=== PATIENT | female | born 1940 | race Caucasian/White ===

== ENCOUNTER 2020-04-02 17:43 | Inpatient (IN) | payer MEDICARE, OTHER ==
[~2020-04-02] VITALS: Ht 152.4 cm; Wt 57.3 kg
--- NOTE | 2020-04-02 17:50 | NUR ---
Dr. Espinoza at bedside for MSE
[2020-04-02] MEDS ORDERED: IV NORMAL SALINE 1000 ML BAG IV ONE (18:00)
[2020-04-02] MEDS ORDERED: MAG HYDROX/AL HYDROX/SIMETH 30 ML LIQUID UDC PO ONE (18:00)
[2020-04-02] MEDS ORDERED: PANTOPRAZOLE SODIUM 40 MG VIAL IV ONE (18:00)
[2020-04-02] MEDS ORDERED: FAMO20TA8 PO (18:05)
[2020-04-02] MEDS ORDERED: PANT40TA4 PO (18:05)
[2020-04-02 18:22] LABS: BASOPHILS % (AUTO) 0.5 % (0.0-2.0); EOSINOPHILS # (AUTO) 0.8 K/uL (0.0-0.7); EOSINOPHILS % (AUTO) 10.8 % (0.0-7.0); HEMATOCRIT 41.2 % (31.2-41.9); HEMOGLOBIN 13.9 g/dL (10.9-14.3); LYMPHOCYTES # (AUTO) 2.1 K/uL (20.0-40.0); LYMPHOCYTES % (AUTO) 28.8 % (20.5-51.5); MEAN CORPUSCULAR HEMOGLOBIN 30.2 uug (24.7-32.8); MEAN CORPUSCULAR HGB CONC 34 g/dL (32.3-35.6); MEAN CORPUSCULAR VOLUME 89.2 fL (75.5-95.3); MONOCYTES # (AUTO) 0.5 K/uL (2.0-10.0); MONOCYTES % (AUTO) 7.7 % (0.0-11.0); NEUTROPHILS # (AUTO) 3.7 K/uL (1.8-8.9); NEUTROPHILS % (AUTO) 52.2 % (38.5-71.5); PLATELET COUNT (AUTO) 175 K/uL (179-408); RED BLOOD CELL COUNT(AUTO) 4.62 MIL/uL (3.63-4.92); WHITE BLOOD COUNT (AUTO) 7.2 K/uL (3.8-11.8)
[2020-04-02] MEDS ORDERED: MAG HYDROX/AL HYDROX/SIMETH 30 ML LIQUID UDC ONE (18:24)
[2020-04-02] MEDS ORDERED: PANTOPRAZOLE SODIUM 40 MG VIAL ONE (18:24)
[2020-04-02 18:32] LABS: CREATININE 0.6 mg/dL (0.6-1.3)
[2020-04-02 18:39] LABS: BILIRUBIN,DIRECT 0.3 mg/dL (0.0-0.2); BILIRUBIN,TOTAL 0.8 mg/dL (0.2-1.0); TOTAL PROTEIN, SERUM 6.1 g/dL (6.4-8.2)
[2020-04-02] MEDS ORDERED: MORPHINE SULFATE 2 MG/1 ML DISP.SYRIN ONE (18:48)
[2020-04-02] MEDS ORDERED: ONDANSETRON 4 MG/2 ML VIAL ONE (18:48)
[2020-04-02] MEDS ORDERED: MORPHINE SULFATE 4 MG/1 ML DISP.SYRIN IV ONE (19:00)
[2020-04-02] MEDS ORDERED: MORPHINE SULFATE 2 MG/1 ML DISP.SYRIN IV ONE (19:00)
[2020-04-02] MEDS ORDERED: ONDANSETRON 4 MG/2 ML VIAL IV ONE (19:00)
[2020-04-02] MEDS ORDERED: MORPHINE SULFATE 4 MG/1 ML DISP.SYRIN ONE (19:04)
[2020-04-02] MEDS ORDERED: FLUT1BLS IH (20:11)
[2020-04-02] MEDS ORDERED: CARB-95 PO (20:11)
[2020-04-02] MEDS ORDERED: ALBU8.5H8 IH (20:11)
[2020-04-02] MEDS ORDERED: MEMA10TA PO (20:11)
[2020-04-02] MEDS ORDERED: NITR1PAT67 TD (20:11)
[2020-04-02] MEDS ORDERED: ONDA4TAB5 PO (20:11)
--- NOTE | 2020-04-02 21:02 | NUR ---
COVID SWAB COLLECTED, DROPPED OF AT LAB.
[2020-04-02] MEDS ORDERED: ONDANSETRON 4 MG/2 ML VIAL IV PRN (21:30)
[2020-04-02] MEDS ORDERED: ACETAMINOPHEN 325 MG TABLET PO PRN (21:30)
[2020-04-02] MEDS ORDERED: MAGNESIUM HYDROXIDE 30 ML LIQUID UDC PO PRN (21:30)
[2020-04-02] MEDS ORDERED: ONDANSETRON HCL 4 MG TABLET PO PRN (21:30)
[2020-04-02] MEDS ORDERED: Z GUARD REMEDY PASTE 57 GM TUBE TOP PRN (21:30)
[2020-04-02] MEDS ORDERED: HYDROCODONE/APAP 5-325MG TABLET PO PRN (21:30)
[2020-04-02] MEDS ORDERED: MORPHINE SULFATE 2 MG/1 ML DISP.SYRIN IV PRN (21:30)
[2020-04-02] MEDS: IV NS 1000 ML 1,000 ML IV SCH (21:48)
--- NOTE | 2020-04-02 22:11 | NUR ---
Dr. Radford at bedside talking to patient.
--- NOTE | 2020-04-03 02:11 | NUR ---
Pt. admitted to m/s , under care of Dr. Radford Belongs List completed.
--- NOTE | 2020-04-03 02:49 | NUR ---
Received pt via wheelchair, transported by ER nurse Badillo. Pt denies any acute distress or pain at this time, but complains of being nauseous. Will further assess. Pt came here d/t Epigastric pain and nausea since yesterday. V/S stable on room air. Pt is NPO. All personal belongings checked and home medications will send to pharmacy for med reconciliation. Safety measures in place,call light within reach. Will continue with the plan of care.
[2020-04-03] MEDS ORDERED: ALBUTEROL SULFATE 2.5 MG/3 ML NEBU NEB PRN (03:00)
[2020-04-03] MEDS: IV NS 1000 ML 1,000 ML IV SCH (04:01)
--- NOTE | 2020-04-03 04:30 | NUR ---
Pt's IV is infiltrated. Initiated to restart a new one but pt refused, she stated that she will talk to her daughter who is a nurse, because she doesn't want to get poked again, unless a portainer operator will do it. Educated the pt that only a registered nurse can insert an IV. Pt still refused. Charge nurse aware.
[2020-04-03 05:25] VITALS: BP 134/79
--- NOTE | 2020-04-03 06:23 | NUR ---
Pt slept intermittently through the night. Pt denies any acute distress or pain. Pt had no episode of vomiting or abdominal pain during my shift. V/S stable on room air. Comfort care and needs attended. Pt on NPO. No IV access d/t infiltration. Still refused to reinsert a new one. Fall precaution maintained. Safety measures in place. Call light within reach. Will endorse to the oncoming nurse accordingly.
--- NOTE | 2020-04-03 08:00 | NUR ---
Received pt in bed asleep but arousable to name AOx3, on RA with no distress or SOB noted at this time. Denied chest pain, any abdominal pain and nausea. Ambulated to bathroom. Bed locked in lowest position with siderails 2x up call light and phone within reach
[2020-04-03] MEDS: PANTOPRAZOLE SODIUM 40 MG TABLET.DR PO SCH (09:05)
[2020-04-03] MEDS: MEMANTINE HCL 5 MG TABLET PO SCH (09:05)
[2020-04-03] MEDS: FAMOTIDINE 20 MG TABLET PO SCH (09:05)
[2020-04-03] MEDS: CARBIDOPA/LEVODOPA CR 25-100MG TABLET.SA PO SCH ×3 (09:07→16:15)
--- NOTE | 2020-04-03 10:43 | NUR ---
TOM tried to reinsert IV but per TOM patient refused at this time
[2020-04-03 10:55] LABS: BASOPHILS % (AUTO) 0.2 % (0.0-2.0); EOSINOPHILS # (AUTO) 0.7 K/uL (0.0-0.7); EOSINOPHILS % (AUTO) 10.9 % (0.0-7.0); HEMATOCRIT 42.7 % (31.2-41.9); HEMOGLOBIN 14.4 g/dL (10.9-14.3); LYMPHOCYTES # (AUTO) 1.2 K/uL (20.0-40.0); LYMPHOCYTES % (AUTO) 19.6 % (20.5-51.5); MEAN CORPUSCULAR HEMOGLOBIN 30.4 uug (24.7-32.8); MEAN CORPUSCULAR HGB CONC 34 g/dL (32.3-35.6); MEAN CORPUSCULAR VOLUME 90.1 fL (75.5-95.3); MONOCYTES # (AUTO) 0.5 K/uL (2.0-10.0); MONOCYTES % (AUTO) 7.6 % (0.0-11.0); NEUTROPHILS # (AUTO) 3.8 K/uL (1.8-8.9); NEUTROPHILS % (AUTO) 61.7 % (38.5-71.5); PLATELET COUNT (AUTO) 173 K/uL (179-408); RED BLOOD CELL COUNT(AUTO) 4.74 MIL/uL (3.63-4.92); WHITE BLOOD COUNT (AUTO) 6.1 K/uL (3.8-11.8)
[2020-04-03 11:12] LABS: CREATININE 0.6 mg/dL (0.6-1.3); MAGNESIUM 2.3 mg/dL (1.8-2.4); PHOSPHOROUS 3.3 mg/dL (2.5-4.9); POTASSIUM 4.1 mmol/L (3.5-5.1)
[2020-04-03 12:00] VITALS: BP 143/73
--- NOTE | 2020-04-03 12:30 | NUR ---
IV just reinserted and fluid started
--- NOTE | 2020-04-03 13:38 | NUR ---
Able to tolerate clear liquid diet, denied any pain and nausea, and stated she feels a lot better
[2020-04-03 15:58] VITALS: BP 125/79
[2020-04-03 20:00] VITALS: BP 135/69
[2020-04-03] MEDS: IV NS 1000 ML 1,000 ML IV PRN (20:08)
[2020-04-04 04:00] VITALS: BP 132/71
[2020-04-04] MEDS: IV NS 1000 ML 1,000 ML IV PRN (05:57)
--- NOTE | 2020-04-04 06:32 | NUR ---
PATIENT AWAKE IN BED. SLEPT WELL. DENIES PAIN OR DISCOMFORT. IVF INFUSING WELL. CALL LIGHT IN REACH. ALL NEEDS ATTENDED. WILL CONTINUE TO MONITOR.
--- NOTE | 2020-04-04 08:00 | NUR ---
Pt in bed awake AOx3 on RA with no SOB or distress noted at this time. IV on right FA infiltrated, removed, no bleeding. Very restless and wants to eat and go home, informed pt that the reason for clear liquid diet and MD will come see her. Denied any abdominal pain. Ambulates with steady gait. Reinforced the use of call light instead of coming out of room, verbalized understanding but pt very forgetful. Bed locked in lowest position with siderails 2x up. Call light and phone within reach
[2020-04-04] MEDS: PANTOPRAZOLE SODIUM 40 MG TABLET.DR PO SCH (08:19)
[2020-04-04] MEDS: CARBIDOPA/LEVODOPA CR 25-100MG TABLET.SA PO SCH ×3 (08:19→17:05)
[2020-04-04] MEDS: MEMANTINE HCL 5 MG TABLET PO SCH (08:19)
[2020-04-04] MEDS: FAMOTIDINE 20 MG TABLET PO SCH (08:19)
--- NOTE | 2020-04-04 10:55 | NUR ---
Pt getting very restless and agitated. Keeps walking to the nursing station, kept reinforcing to stay in the room. Pt angry and stated that she's very hungry and informed that the doctor will come in and see her and will decide to advance diet. Spoke with daughter on the phone and informed her about the situation and updates regarding patient. MD will call daughter. Offered katrin and will bring up soup for patient.
[2020-04-04 11:37] VITALS: BP 139/90
[2020-04-04 11:55] LABS: BASOPHILS % (AUTO) 0.2 % (0.0-2.0); EOSINOPHILS # (AUTO) 0.3 K/uL (0.0-0.7); EOSINOPHILS % (AUTO) 5.8 % (0.0-7.0); HEMATOCRIT 41.2 % (31.2-41.9); HEMOGLOBIN 14.3 g/dL (10.9-14.3); LYMPHOCYTES # (AUTO) 1.6 K/uL (20.0-40.0); LYMPHOCYTES % (AUTO) 26.7 % (20.5-51.5); MEAN CORPUSCULAR HEMOGLOBIN 30.9 uug (24.7-32.8); MEAN CORPUSCULAR HGB CONC 35 g/dL (32.3-35.6); MEAN CORPUSCULAR VOLUME 89.2 fL (75.5-95.3); MONOCYTES # (AUTO) 0.4 K/uL (2.0-10.0); NEUTROPHILS # (AUTO) 3.6 K/uL (1.8-8.9); NEUTROPHILS % (AUTO) 60.3 % (38.5-71.5); PLATELET COUNT (AUTO) 167 K/uL (179-408); RED BLOOD CELL COUNT(AUTO) 4.62 MIL/uL (3.63-4.92)
[2020-04-04 12:00] LABS: CREATININE 0.8 mg/dL (0.6-1.3); POTASSIUM 3.8 mmol/L (3.5-5.1)
--- NOTE | 2020-04-04 13:46 | NUR ---
Dr. Chong talked to daughter Destini and explained plan of care. Daughter will talk and explain to patient. Plan for midline insertion, order carried out. Also explained to patient
[2020-04-04 15:45] VITALS: BP 146/65
--- NOTE | 2020-04-04 16:00 | NUR ---
Midline inserted on ZACHERY. Tolerated procedure well
[2020-04-04] MEDS ORDERED: ONDANSETRON 4 MG/2 ML VIAL IV PRN (17:00)
[2020-04-04] MEDS: IV D5 1/2 NS 1000 ML 1,000 ML IV PRN (17:23)
[2020-04-04] MEDS: FLUTICASONE/VILANTEROL 1 EACH BLST.W.DEV IH PRN (17:23)
--- NOTE | 2020-04-04 18:42 | NUR ---
Pt has been repeatedly informed not to walk around hallway to prevent midline from getting dislodged, verbalized understanding but forgetful
[2020-04-04 19:48] VITALS: BP 140/71
--- NOTE | 2020-04-04 23:15 | NUR ---
Reinforced safety, reminded to stay in bed at all times, verbalized understanding but forgets. Pt still tries to get our of bed. frequent roundings done and bed alarm on
[2020-04-05] MEDS: FLUTICASONE/VILANTEROL 1 EACH BLST.W.DEV IH PRN (01:39)
[2020-04-05 04:40] VITALS: BP 139/81
[2020-04-05] MEDS: IV D5 1/2 NS 1000 ML 1,000 ML IV PRN (06:00)
--- NOTE | 2020-04-05 06:29 | NUR ---
Pt did not sleep throughout the night, kept getting out of bed and out of room. Reinforcement of safety and education done throughout shift but patient forgetful. Patient confused, AOx1. Earlier complained of SOB, inhaler given with relief. Denies any abdominal pain and chest pain
[2020-04-05 07:13] LABS: BASOPHILS % (AUTO) 0.1 % (0.0-2.0); EOSINOPHILS # (AUTO) 0.2 K/uL (0.0-0.7); EOSINOPHILS % (AUTO) 3.2 % (0.0-7.0); HEMATOCRIT 36.6 % (31.2-41.9); HEMOGLOBIN 12.8 g/dL (10.9-14.3); LYMPHOCYTES # (AUTO) 1.2 K/uL (20.0-40.0); LYMPHOCYTES % (AUTO) 19.1 % (20.5-51.5); MEAN CORPUSCULAR HEMOGLOBIN 31.2 uug (24.7-32.8); MEAN CORPUSCULAR HGB CONC 35 g/dL (32.3-35.6); MEAN CORPUSCULAR VOLUME 89.2 fL (75.5-95.3); MONOCYTES # (AUTO) 0.4 K/uL (2.0-10.0); NEUTROPHILS # (AUTO) 4.4 K/uL (1.8-8.9); NEUTROPHILS % (AUTO) 70.6 % (38.5-71.5); PLATELET COUNT (AUTO) 148 K/uL (179-408); WHITE BLOOD COUNT (AUTO) 6.2 K/uL (3.8-11.8)
[2020-04-05 07:19] LABS: BILIRUBIN,TOTAL 0.8 mg/dL (0.2-1.0); CREATININE 0.7 mg/dL (0.6-1.3); MAGNESIUM 1.9 mg/dL (1.8-2.4); PHOSPHOROUS 3.1 mg/dL (2.5-4.9); POTASSIUM 3.9 mmol/L (3.5-5.1); TOTAL PROTEIN, SERUM 5.7 g/dL (6.4-8.2)
[2020-04-05 07:28] LABS: THYROID STIMULATING HORMONE 1.801 mIU/mL (0.358-3.740)
[2020-04-05] MEDS: FAMOTIDINE 20 MG TABLET PO SCH (08:16)
[2020-04-05] MEDS: CARBIDOPA/LEVODOPA CR 25-100MG TABLET.SA PO SCH (08:17)
[2020-04-05] MEDS: PANTOPRAZOLE SODIUM 40 MG TABLET.DR PO SCH (08:17)
[2020-04-05] MEDS: MEMANTINE HCL 5 MG TABLET PO SCH (08:17)
--- NOTE | 2020-04-05 09:18 | NUR ---
Received patient in room, awake, AOx3. Patient seen and examined by MD Chong. Lipase-88 normal. MD aware. ordered discharge today. Patient family notifed and agree. Removed midline. no infiltration noted. will continue monitor
[2020-04-05] MEDS ORDERED: SIMV10TA98 PO (11:30)
--- NOTE | 2020-04-05 11:41 | NUR ---
Patient discharge around 1130am in stable condition. 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 Patient discharge instruction and medication prescription given verbalize understanding.
--- NOTE | 2020-04-05 13:34 | NUR ---
Received call from daughter Destini [phone] stating that the pharmacy did not receive ePrescription on discharge. Verified with her that [facility] [address] [place] [address] which she agreed. Call to [facility] [phone], pharmacist confirmed ePrescription was received for Simvastatin and was ready for pick-up. Notified daughter.
[2020-04-05] MEDS ORDERED: SIMVASTATIN 10 MG TABLET PO SCH (21:00)
[2020-04-06 20:00] VITALS: BP 139/98
== END 2020-04-05 11:30 | disposition home or self-care (01) | DRG 439 ==
LOC: ER 17:44 → MEDSURG3 23:45
PROVIDERS: ADMIT Family Medicine; ATTEND Family Medicine
PROC: 05HY33Z Insertion of Infusion Device into Upper Vein, Percutaneous Approach (ICD-10-PCS; principal; 2020-04-04)
DX: K85.90 Acute pancreatitis without necrosis or infection, unspecified (principal); E44.1 Mild protein-calorie malnutrition; Z68.24 Body mass index [BMI] 24.0-24.9, adult; G20 Parkinson's disease; F02.80 Dementia in other diseases classified elsewhere, unspecified severity, without behavioral disturbance, psychotic disturbance, mood disturbance, and anxiety; J44.9 Chronic obstructive pulmonary disease, unspecified; K21.9 Gastro-esophageal reflux disease without esophagitis; Z87.891 Personal history of nicotine dependence; Z90.49 Acquired absence of other specified parts of digestive tract; E88.09 Other disorders of plasma-protein metabolism, not elsewhere classified; K80.50 Calculus of bile duct without cholangitis or cholecystitis without obstruction; I10 Essential (primary) hypertension
CPT/HCPCS: 36415; 70030-TC; 71045; 83690; 83735; 84100; 84443; 85025; 93005; A4663; C9113; G0378; J2270; J2405; J3490; J7030

== ENCOUNTER 2021-11-02 14:01 | Inpatient (IN) | payer MEDICARE, OTHER ==
[~2021-11-02] VITALS: Ht 160 cm; Wt 59.9 kg
[~2021-11-02 14:01] MED LIST: ALBU8.5H8 IH; CARB-95 PO; FAMO20TA8 PO; FLUT1BLS IH; MEMA10TA PO; NITR1PAT67 TD; ONDA4TAB5 PO; PANT40TA49 PO; SIMV10TA98 PO
[2021-11-02] MEDS ORDERED: HYDROCODONE/APAP 5-325MG TABLET PO ONE (14:30)
[2021-11-02] MEDS ORDERED: ONDANSETRON 4 MG/2 ML VIAL IV ONE (14:45)
[2021-11-02] MEDS ORDERED: MORPHINE SULFATE 2 MG/1 ML DISP.SYRIN IV ONE (14:45)
[2021-11-02] MEDS ORDERED: IV NORMAL SALINE 1000 ML BAG IV ONE (14:45)
--- NOTE | 2021-11-02 14:51 | NUR ---
med list obtained from pt's daughter,
--- NOTE | 2021-11-02 14:55 | NUR ---
A call to exchange for Dr. Lewis as per exchange will be paged and if no call back within 20 min. to call back.
[2021-11-02] MEDS ORDERED: LIPA1CAP15 PO (14:58)
[2021-11-02] MEDS ORDERED: MORPHINE SULFATE 4 MG/1 ML DISP.SYRIN ONE (14:58)
[2021-11-02] MEDS ORDERED: MONT10TA22 PO (14:58)
[2021-11-02] MEDS ORDERED: DONE10TA44 PO (14:58)
[2021-11-02] MEDS ORDERED: QUET25TA PO (14:58)
[2021-11-02] MEDS ORDERED: OMEP40CA21 PO (14:58)
[2021-11-02] MEDS ORDERED: FLUO20CA42 PO (14:58)
[2021-11-02] MEDS ORDERED: ONDANSETRON 4 MG/2 ML VIAL ONE (14:59)
[2021-11-02 15:00] LABS: HEMATOCRIT 36.6 % (31.2-41.9); MEAN CORPUSCULAR HEMOGLOBIN 29.2 uug (24.7-32.8); MEAN CORPUSCULAR VOLUME 85.7 fL (75.5-95.3); PLATELET COUNT (AUTO) 105 K/uL (179-408)
[2021-11-02] MEDS ORDERED: ONDANSETRON 4 MG/2 ML VIAL IV PRN (15:00)
[2021-11-02] MEDS ORDERED: MORPHINE SULFATE 2 MG/1 ML DISP.SYRIN IV PRN (15:00)
[2021-11-02] MEDS ORDERED: REMEDY ESSENTIAL ZINC PASTE 113 GM TP PRN (15:00)
[2021-11-02] MEDS ORDERED: MAGNESIUM HYDROXIDE 30 ML LIQUID UDC PO PRN (15:00)
[2021-11-02 15:07] LABS: CREATININE 0.8 mg/dL (0.6-1.3); POTASSIUM 4.2 mmol/L (3.5-5.1)
[2021-11-02 15:12] LABS: BILIRUBIN,DIRECT 0.2 mg/dL (0.0-0.2); BILIRUBIN,TOTAL 0.9 mg/dL (0.2-1.0); TOTAL PROTEIN, SERUM 6.1 g/dL (6.4-8.2)
--- NOTE | 2021-11-02 16:14 | NUR ---
Report given to Elisa Perez all system report given.
--- NOTE | 2021-11-02 16:15 | NUR ---
HR 81, sbp 119/84 saturation of 97% L NC after morphine administered.
[2021-11-02 16:30] VITALS: BP 118/45
--- NOTE | 2021-11-02 19:00 | NUR ---
Received pt from ER for fractured hip at 1630. Pt stated she had a fall two days ago when throwing her trash away. Pt has walker at home. Pt is a/o x 3, has trouble remembering certain details due to history of dementia. Pt is on bedrest. To be placed on NPO at midnight. Pending Dr Lewis consult. Pt does not complain of pain at this time, complaints of nausea and vomiting post dinner tray because she did not like the food. Administered Zofran PRN as ordered. Family at bedside, comfort measures provided, call light within reach. 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
[2021-11-02] MEDS: ACETAMINOPHEN 325 MG TABLET PO PRN (19:42)
[2021-11-02 20:00] VITALS: BP 109/57
[2021-11-02] MEDS ORDERED: ENOXAPARIN SODIUM 40 MG/0.4 ML DISP.SYRIN SQ SCH (21:00)
[2021-11-02] MEDS ORDERED: ENOXAPARIN SODIUM 40 MG/0.4 ML DISP.SYRIN SQ ONE (22:30)
[2021-11-03] MEDS ORDERED: IV LACTATED RINGERS SOLUTION 1,000 ML IV PRN
[2021-11-03 04:00] VITALS: BP 107/54
[2021-11-03 06:38] LABS: HEMATOCRIT 35.8 % (31.2-41.9); MEAN CORPUSCULAR HEMOGLOBIN 28.9 uug (24.7-32.8); MEAN CORPUSCULAR VOLUME 86.9 fL (75.5-95.3); PLATELET COUNT (AUTO) 87 K/uL (179-408)
[2021-11-03 07:21] LABS: CREATININE 0.7 mg/dL (0.6-1.3); MAGNESIUM 2.1 mg/dL (1.8-2.4); PHOSPHOROUS 3.7 mg/dL (2.5-4.9); POTASSIUM 4.6 mmol/L (3.5-5.1)
[2021-11-03 07:33] LABS: NEUTROPHILS % (MANUAL) 0 % (42-75)
[2021-11-03 11:09] VITALS: BP 104/52
[2021-11-03] MEDS ORDERED: FAMOTIDINE 20 MG TABLET PO SCH (14:00)
[2021-11-03] MEDS ORDERED: ALBUTEROL SULFATE 8 GM HFA.AER.AD IH PRN (14:00)
[2021-11-03] MEDS ORDERED: MEMANTINE HCL 10 MG TABLET PO SCH (14:00)
[2021-11-03] MEDS ORDERED: ALBUTEROL SULFATE 2.5 MG/3 ML NEBU NEB PRN (14:15)
[2021-11-03] MEDS ORDERED: CARB1TAB21 PO (14:18)
[2021-11-03] MEDS ORDERED: MEMA28CA5 PO (14:20)
[2021-11-03] MEDS ORDERED: MEMANTINE 28 MG PO SCH (14:30)
[2021-11-03] MEDS ORDERED: DONEPEZIL 10 MG TABLET PO SCH (15:00)
[2021-11-03 15:16] VITALS: BP 117/69
[2021-11-03] MEDS ORDERED: ERGO500040 PO (15:28)
[2021-11-03] MEDS ORDERED: CALC-903 PO (15:28)
[2021-11-03] MEDS ORDERED: FOLI1TAB94 PO (15:28)
[2021-11-03] MEDS ORDERED: ZINC50TA69 PO (15:28)
[2021-11-03] MEDS: CARBIDOPA/LEVODOPA 25-100MG TABLET PO SCH ×2 (16:44→20:15)
[2021-11-03] MEDS: FLUOXETINE HCL 20 MG CAPSULE PO SCH (16:44)
[2021-11-03] MEDS: ISOSORBIDE MONONITRATE 30 MG TAB.SR.24H PO SCH (16:44)
[2021-11-03] MEDS: MONTELUKAST SODIUM 10 MG TABLET PO SCH (16:44)
[2021-11-03] MEDS ORDERED: CARBIDOPA/LEVODOPA CR 25-100MG TABLET.SA PO SCH (17:00)
[2021-11-03] MEDS: LIPASE/PROTEASE/AMYLASE 4200 UNITS CAPSULE.DR PO SCH (18:03)
[2021-11-03] MEDS: QUETIAPINE FUMARATE 25 MG TABLET PO SCH (20:15)
[2021-11-03] MEDS: DONEPEZIL 10 MG TABLET PO SCH (20:15)
[2021-11-03 20:53] VITALS: BP 122/70
[2021-11-03] MEDS ORDERED: SIMVASTATIN 10 MG TABLET PO SCH (21:00)
[2021-11-03] MEDS: IV LACTATED RINGERS SOLUTION 1,000 ML IV PRN (22:27)
--- NOTE | 2021-11-03 22:30 | NUR ---
Patient in bed c/o left hip pain.Medicated with morphine Ivp with good effect. IV on left Ac 20 patent and and intact with IVF infusing well. O2 at 2LPM via NC saturating well .NPO after midnight.Patient made aware and verbalized understanding. Call light with in reach.Will continue to monitor.
[2021-11-04 04:20] VITALS: BP 112/65
[2021-11-04] MEDS: PANTOPRAZOLE SODIUM 40 MG TABLET.DR PO SCH (06:21)
[2021-11-04 07:04] LABS: HEMATOCRIT 31.6 % (31.2-41.9); MEAN CORPUSCULAR HEMOGLOBIN 29.8 uug (24.7-32.8); MEAN CORPUSCULAR VOLUME 85.9 fL (75.5-95.3); PLATELET COUNT (AUTO) 94 K/uL (179-408)
[2021-11-04 07:20] LABS: CREATININE 0.6 mg/dL (0.6-1.3); MAGNESIUM 1.9 mg/dL (1.8-2.4); PHOSPHOROUS 3.6 mg/dL (2.5-4.9); POTASSIUM 4.2 mmol/L (3.5-5.1)
[2021-11-04] MEDS ORDERED: BUPIVACAINE 0.25% 30 ML VIAL ONE (07:30)
[2021-11-04] MEDS ORDERED: VANCOMYCIN 1000 MG VIAL ONE (07:30)
[2021-11-04] MEDS: LIPASE/PROTEASE/AMYLASE 4200 UNITS CAPSULE.DR PO SCH ×3 (08:00→18:08)
[2021-11-04] MEDS: FOLIC ACID 1 MG TABLET PO SCH (08:15)
[2021-11-04] MEDS: ISOSORBIDE MONONITRATE 30 MG TAB.SR.24H PO SCH (08:15)
[2021-11-04] MEDS: CALCIUM CARBONATE 600 MG TABLET PO SCH (08:15)
[2021-11-04] MEDS: FLUOXETINE HCL 20 MG CAPSULE PO SCH (08:16)
[2021-11-04] MEDS: ZINC SULFATE 220 MG CAPSULE PO SCH (08:16)
[2021-11-04] MEDS: MONTELUKAST SODIUM 10 MG TABLET PO SCH (08:16)
[2021-11-04] MEDS: CARBIDOPA/LEVODOPA 25-100MG TABLET PO SCH ×4 (08:16→21:31)
[2021-11-04] MEDS ORDERED: HYDROMORPHONE 2 MG/1 ML DISP.SYRIN ONE (08:30)
[2021-11-04] MEDS ORDERED: FENTANYL CITRATE 100 MCG/2 ML AMPUL ONE ×2 (08:30→11:48)
[2021-11-04] MEDS ORDERED: ROCURONIUM BROMIDE 50 MG/5 ML VIAL ONE (08:31)
[2021-11-04] MEDS ORDERED: GLYCOPYRROLATE 0.2 MG/ML VIAL ONE (08:43)
[2021-11-04] MEDS ORDERED: ALBUTEROL SULFATE 8 GM HFA.AER.AD ONE (08:43)
--- NOTE | 2021-11-04 08:45 | NUR ---
Patient picked up by OR nurse.
[2021-11-04] MEDS: FLUTICASONE/VILANTEROL 1 EACH BLST.W.DEV IH SCH (08:59)
[2021-11-04] MEDS ORDERED: NALOXONE HCL 0.4 MG/ML AMPUL ONE (10:45)
[2021-11-04] MEDS ORDERED: ESMOLOL HCL 100 MG/10 ML VIAL IV ONE (10:50)
[2021-11-04] MEDS ORDERED: MORPHINE SULFATE 2 MG/1 ML DISP.SYRIN IV PRN (12:00)
[2021-11-04] MEDS ORDERED: diphenhydrAMINE 50 MG/1 ML VIAL ONE (12:57)
--- NOTE | 2021-11-04 13:34 | NUR ---
patient returned from surgery s/p im nailing of left hip. patient on arrival is sleepy but easy to arouse, patient currently on 3L o2 with spo2 100%, rr even and non-labored, lungs clear bilateral, 0 episode of sob during shift. bp: 111/70 p:106 rr: 16 t: 97.5 pain 0/10. patient. patient with dressing noted to left hip clean and dry, no bleeding noted. pedal pulses present strong. new order to transfer patient to telemetry x24hrs, place patient on regular diet and to get up with pt in am toe weight bearing as tolerated. noted and carried out.
[2021-11-04 16:40] VITALS: BP 107/65
[2021-11-04] MEDS: IV LACTATED RINGERS SOLUTION 1,000 ML IV PRN (16:49)
[2021-11-04] MEDS: CEFAZOLIN 1 G in IV DEXTROSE 5% 50 ML IV SCH (16:49)
[2021-11-04] MEDS ORDERED: FAMOTIDINE. 20 MG/2 ML VIAL IV ONE (17:00)
--- NOTE | 2021-11-04 18:25 | NUR ---
patient is currently sleeping easily arousable and in no distress. dressing to left hip remains intact, no bleeding noted. pedal pulses present and strong.
[2021-11-04 20:12] VITALS: BP 125/73
--- NOTE | 2021-11-04 20:30 | NUR ---
Received patient in bed. AAOX1, with periods of confusion and agitation post-operation. Reoriented patient accordingly. On telemonitor, showing episodes of sinus tachycardia with HR of 130bpm. On 3L O2 via NC. With IV access at LAC running LR at 75cc/hr. With surgical dressing, soaked with bright red blood, Dr. Lewis has been notified. Safety precautions in place. Will continue to monitor.
--- NOTE | 2021-11-04 20:50 | NUR ---
Called patient's daughter, Marco Antoniogiovanni , however, phone is not ringing. Need to advised patient's daughter to bring Dupixente 200mg medication by Friday.
[2021-11-04] MEDS: QUETIAPINE FUMARATE 25 MG TABLET PO SCH (21:31)
[2021-11-04] MEDS: DONEPEZIL 10 MG TABLET PO SCH (21:31)
[2021-11-04] MEDS: ACETAMINOPHEN 325 MG TABLET PO PRN (21:38)
--- NOTE | 2021-11-04 22:00 | NUR ---
IV dislodged, reinserted new IV at R FA gauge 22, patent and intact.
[2021-11-05 00:42] VITALS: BP 128/75
[2021-11-05] MEDS: CEFAZOLIN 1 G in IV DEXTROSE 5% 50 ML IV SCH (01:03)
[2021-11-05 04:00] VITALS: BP 98/64
--- NOTE | 2021-11-05 05:51 | NUR ---
Patient woke up, confused and disoriented. Claims that the time hasn't changed and that the nurses don't check on her despite, multiple patient checks. Pt wants to complain and leave hospital. Reoriented patient accordingly, however, pt refuses to listen. Pt's surgical dressing was changed.
[2021-11-05] MEDS: PANTOPRAZOLE SODIUM 40 MG TABLET.DR PO SCH (06:31)
--- NOTE | 2021-11-05 06:40 | NUR ---
Patient appears calmer now. Patient is awake, alert and oriented x2, reoriented patient accordingly. IV access patent and intact. Dressing Pinpoint rashes noted on the extremities, patient complained of having shortness of breath, however, pt is on 3L o2 saturating at 100%. Will endorse accordingly.
[2021-11-05 06:52] LABS: HEMATOCRIT 30.6 % (31.2-41.9); MEAN CORPUSCULAR HEMOGLOBIN 29.7 uug (24.7-32.8); MEAN CORPUSCULAR VOLUME 85.1 fL (75.5-95.3); PLATELET COUNT (AUTO) 105 K/uL (179-408)
[2021-11-05 07:11] LABS: CREATININE 0.7 mg/dL (0.6-1.3); MAGNESIUM 1.8 mg/dL (1.8-2.4); PHOSPHOROUS 3.5 mg/dL (2.5-4.9); POTASSIUM 4.2 mmol/L (3.5-5.1)
[2021-11-05] MEDS: LIPASE/PROTEASE/AMYLASE 4200 UNITS CAPSULE.DR PO SCH ×3 (08:45→17:00)
[2021-11-05] MEDS: FLUTICASONE/VILANTEROL 1 EACH BLST.W.DEV IH SCH (08:46)
[2021-11-05] MEDS: FOLIC ACID 1 MG TABLET PO SCH (08:46)
[2021-11-05] MEDS: MONTELUKAST SODIUM 10 MG TABLET PO SCH (08:47)
[2021-11-05] MEDS: CARBIDOPA/LEVODOPA 25-100MG TABLET PO SCH ×4 (08:47→20:21)
[2021-11-05] MEDS: ZINC SULFATE 220 MG CAPSULE PO SCH (08:47)
[2021-11-05] MEDS: CALCIUM CARBONATE 600 MG TABLET PO SCH (08:48)
[2021-11-05] MEDS: HYDROCODONE/APAP 5-325MG TABLET PO PRN ×2 (08:55→16:58)
[2021-11-05] MEDS: ISOSORBIDE MONONITRATE 30 MG TAB.SR.24H PO SCH (08:56)
[2021-11-05] MEDS: FLUOXETINE HCL 20 MG CAPSULE PO SCH (09:25)
--- NOTE | 2021-11-05 10:00 | NUR ---
patient evaluated by PT.
[2021-11-05 11:43] VITALS: BP 107/62
--- NOTE | 2021-11-05 12:00 | NUR ---
new discharge order explained all discharge paperwork with patient, reminded patient to follow up with neurologist as soon as possible. continue taking current medication regimen. return to nearest ER or call 911 if symptoms worsen patient states understanding. IV site removed minimal bleeding noted. dressing applied. Addendum: 11/05/21 at 1844 by ZACH CARDENAS RN wrong patient.
[2021-11-05] MEDS: ENOXAPARIN SODIUM 40 MG/0.4 ML DISP.SYRIN SQ SCH (12:44)
--- NOTE | 2021-11-05 13:03 | NUR ---
assisted patient upon discharge, 0 seizure activity at this moment, gait steady, vital signs wnl. Addendum: 11/05/21 at 1845 by ZACH CARDENAS RN wrong patient
[2021-11-05 16:00] VITALS: BP 104/62
--- NOTE | 2021-11-05 18:47 | NUR ---
patient is currently laying in bed in no apparent distress. patient alert oriented x2 noted with episodes of confusion, attempted to redirect. patient is s/p left hip im nailing, dressing is clean and dry at this time, no bleeding noted. no c.o pain at this time.
[2021-11-05 20:00] VITALS: BP 96/55
[2021-11-05] MEDS: DONEPEZIL 10 MG TABLET PO SCH (20:21)
[2021-11-05] MEDS: QUETIAPINE FUMARATE 25 MG TABLET PO SCH (20:21)
--- NOTE | 2021-11-05 23:00 | NUR ---
RECEIVED REPORT FROM RN. PATIENT ASLEEP IN BED. NO RESP. DISTRESS NOTED. BED ALARM ON. CALL LIGHT IN REACH. ALL NEEDS ATTENDED. WILL CONTINUE TO MONITOR AND ASSESS.
[2021-11-06 04:00] VITALS: BP 111/65
[2021-11-06] MEDS: HYDROCODONE/APAP 5-325MG TABLET PO PRN ×2 (06:11→14:54)
[2021-11-06] MEDS: PANTOPRAZOLE SODIUM 40 MG TABLET.DR PO SCH (06:11)
[2021-11-06 08:00] VITALS: BP 119/62
[2021-11-06] MEDS: CARBIDOPA/LEVODOPA 25-100MG TABLET PO SCH ×2 (08:32→13:11)
[2021-11-06] MEDS: ZINC SULFATE 220 MG CAPSULE PO SCH (08:32)
[2021-11-06] MEDS: MONTELUKAST SODIUM 10 MG TABLET PO SCH (08:32)
[2021-11-06] MEDS: CALCIUM CARBONATE 600 MG TABLET PO SCH (08:32)
[2021-11-06] MEDS: FLUOXETINE HCL 20 MG CAPSULE PO SCH (08:32)
[2021-11-06] MEDS: FOLIC ACID 1 MG TABLET PO SCH (08:33)
[2021-11-06] MEDS: LIPASE/PROTEASE/AMYLASE 4200 UNITS CAPSULE.DR PO SCH ×2 (08:33→13:11)
[2021-11-06] MEDS: FLUTICASONE/VILANTEROL 1 EACH BLST.W.DEV IH SCH (08:33)
[2021-11-06] MEDS: ISOSORBIDE MONONITRATE 30 MG TAB.SR.24H PO SCH (08:39)
[2021-11-06] MEDS: ENOXAPARIN SODIUM 40 MG/0.4 ML DISP.SYRIN SQ SCH (08:47)
[2021-11-06] MEDS ORDERED: ERGOCALCIFEROL 50,000 UNIT CAPSULE PO SCH (09:00)
[2021-11-06] MEDS ORDERED: ISOS30TA86 PO (10:29)
[2021-11-06] MEDS ORDERED: HYDR-3972 PO (10:29)
[2021-11-06] MEDS ORDERED: ENOX40DI SQ (10:29)
[2021-11-06 12:04] VITALS: BP 119/62
[2021-11-06] MEDS ORDERED: ESMOLOL HCL 100 MG/10 ML VIAL IV ONE (15:06)
[2021-11-06] MEDS ORDERED: GLYCOPYRROLATE 0.2 MG/ML VIAL IJ ONE (15:06)
[2021-11-06] MEDS ORDERED: DEXAMETHASONE SOD PHOSPHATE 4 MG INJ IV ONE (15:06)
[2021-11-06] MEDS ORDERED: SEVOFLURANE 250 ML BOTTLE IH ONE (15:06)
[2021-11-06] MEDS ORDERED: ONDANSETRON 4 MG/2 ML VIAL IV ONE (15:06)
[2021-11-06] MEDS ORDERED: NEOSTIGMINE METHYLSULFATE 10 MG/10 ML VIAL IM ONE (15:06)
[2021-11-06] MEDS ORDERED: LIDOCAINE-MPF 2% 5 ML VIAL IJ ONE (15:06)
[2021-11-06] MEDS ORDERED: CEFAZOLIN 1 G VIAL IM ONE (15:06)
[2021-11-06] MEDS ORDERED: PROPOFOL 200 MG/20 ML BOTTLE IV ONE (15:06)
[2021-11-06] MEDS ORDERED: [UNRECOGNIZED DRUG - OTHER] (18:07)
[2021-11-06] MEDS ORDERED: LIPA1CAP27 PO (18:07)
[2021-11-06] MEDS ORDERED: ACET-2154 PO (18:07)
[2021-11-06 20:00] VITALS: BP 110/63
== END 2021-11-06 15:07 | DRG 481 ==
LOC: ER 14:01 → MEDSURG3 15:07 → TELE3 11-04 13:46 → MEDSURG3 11-05 14:05
PROVIDERS: ADMIT Nurse Practitioner Acute Care; ATTEND Registered Nurse
PROC: 0QS706Z Reposition Left Upper Femur with Intramedullary Internal Fixation Device, Open Approach (ICD-10-PCS; principal; 2021-11-04)
DX: S72.142A Displaced intertrochanteric fracture of left femur, initial encounter for closed fracture (principal); D68.59 Other primary thrombophilia; E44.1 Mild protein-calorie malnutrition; K86.1 Other chronic pancreatitis; W01.0XXA Fall on same level from slipping, tripping and stumbling without subsequent striking against object, initial encounter; Y93.89 Activity, other specified; G20 Parkinson's disease; F02.80 Dementia in other diseases classified elsewhere, unspecified severity, without behavioral disturbance, psychotic disturbance, mood disturbance, and anxiety; E88.09 Other disorders of plasma-protein metabolism, not elsewhere classified; J45.909 Unspecified asthma, uncomplicated; I20.9 Angina pectoris, unspecified; Z74.09 Other reduced mobility; Y92.009 Unspecified place in unspecified non-institutional (private) residence as the place of occurrence of the external cause; Z68.23 Body mass index [BMI] 23.0-23.9, adult; Z20.822 Contact with and (suspected) exposure to COVID-19
CPT/HCPCS: 36415; 70030-TC; 71045; 72170; 73502; 73503; 83735; 84100; 85025; 85730; 93005; 93307; 97161; A4649; A4663; A6209; C1713; G0378; J0690; J1100; J1170; J1200; J1650; J2270; J2310; J2405; J3010; J3370; J3490; J3535; J7040

== ENCOUNTER 2021-11-06 15:20 | Inpatient (IN) | payer MEDICARE, OTHER ==
[~2021-11-06] VITALS: Ht 162.6 cm; Wt 54.4 kg
[~2021-11-06 15:20] MED LIST changes: +CALC-903 PO; -CARB-95 PO; +CARB1TAB21 PO; +DONE10TA44 PO; +ENOX40DI SQ; +ERGO500040 PO; -FAMO20TA8 PO; +FLUO20CA42 PO; +FOLI1TAB94 PO; +HYDR-3972 PO; +ISOS30TA86 PO; +LIPA1CAP15 PO; -MEMA10TA PO; +MONT10TA22 PO; +OMEP40CA21 PO; -ONDA4TAB5 PO; -PANT40TA49 PO; +QUET25TA PO; -SIMV10TA98 PO; +ZINC50TA69 PO
[2021-11-06 16:00] VITALS: BP 101/51
--- NOTE | 2021-11-06 16:00 | NUR ---
Admitted patient to the acute rehab unit. AO x 3 Farsi speaking. On 3L nasal cannula saturating 96%. No shortness of breath at the moment. L hip dressing intact. IV in right wrist 22G flushing, patent, and intact; hep lock. No acute distress at the moment. Awaiting admission orders.
--- NOTE | 2021-11-06 16:14 | NUR ---
Contacted patient's daughter, Destini, and she stated that she brought the patient's necklace home.
[2021-11-06] MEDS ORDERED: [UNRECOGNIZED DRUG - OTHER] (18:07)
[2021-11-06] MEDS ORDERED: LIPA1CAP27 PO (18:07)
[2021-11-06] MEDS ORDERED: ACET-2154 PO (18:07)
[2021-11-06 20:00] VITALS: BP 110/63
[2021-11-06] MEDS ORDERED: ALBUTEROL SULFATE 8 GM HFA.AER.AD IH PRN (20:00)
[2021-11-06] MEDS ORDERED: ALBUTEROL SULFATE 2.5 MG/3 ML NEBU NEB PRN (20:30)
[2021-11-06] MEDS: CARBIDOPA/LEVODOPA 25-100MG TABLET PO SCH (20:47)
[2021-11-06] MEDS: DONEPEZIL 10 MG TABLET PO SCH (20:47)
[2021-11-06] MEDS: QUETIAPINE FUMARATE 25 MG TABLET PO SCH (20:48)
[2021-11-07] MEDS: HYDROCODONE/APAP 5-325MG TABLET PO PRN ×3 (03:32→13:55)
[2021-11-07 04:00] VITALS: BP 130/74
--- NOTE | 2021-11-07 04:00 | NUR ---
Medicated with Van as ordered and needed after good kilo and skin care done. Will monitor.
[2021-11-07 07:50] VITALS: BP 138/82
[2021-11-07 08:00] VITALS: BP 138/82
[2021-11-07] MEDS: ENOXAPARIN SODIUM 40 MG/0.4 ML DISP.SYRIN SQ SCH (08:57)
[2021-11-07] MEDS: CALCIUM CARBONATE 600 MG TABLET PO SCH (08:57)
[2021-11-07] MEDS: ZINC SULFATE 220 MG CAPSULE PO SCH (08:57)
[2021-11-07] MEDS: FLUTICASONE/VILANTEROL 1 EACH BLST.W.DEV IH SCH (08:58)
[2021-11-07] MEDS: LIPASE/PROTEASE/AMYLASE 4200 UNITS CAPSULE.DR PO SCH ×3 (08:58→17:25)
[2021-11-07] MEDS: REMEDY ESSENTIAL ZINC PASTE 113 GM TOP SCH ×2 (08:58→20:38)
[2021-11-07] MEDS: FOLIC ACID 1 MG TABLET PO SCH (08:59)
[2021-11-07] MEDS: FLUOXETINE HCL 20 MG CAPSULE PO SCH (08:59)
[2021-11-07] MEDS: CARBIDOPA/LEVODOPA 25-100MG TABLET PO SCH ×4 (08:59→20:37)
[2021-11-07] MEDS: ISOSORBIDE MONONITRATE 30 MG TAB.SR.24H PO SCH (08:59)
[2021-11-07] MEDS: MONTELUKAST SODIUM 10 MG TABLET PO SCH (08:59)
[2021-11-07] MEDS: PANTOPRAZOLE SODIUM 40 MG TABLET.DR PO SCH (09:38)
--- NOTE | 2021-11-07 12:12 | NUR ---
INTERDISCIPLINARY TEAM CONFERENCE
[2021-11-07 15:38] VITALS: BP 102/52
--- NOTE | 2021-11-07 16:00 | NUR ---
patient is alert, oriented x3, with episodes of forgetfulness, no sob, resp even nonlabored, skin warm and dry to touch, status post ORIF of left hip, incision is well approximated and dry, dressing is intact, pain is managed with pain medications, and nonpharmacological interventions, no events noted.
--- NOTE | 2021-11-07 18:00 | NUR ---
patient took patient's cell phone home.
[2021-11-07 20:00] VITALS: BP 129/74
[2021-11-07] MEDS: DONEPEZIL 10 MG TABLET PO SCH (20:37)
[2021-11-07] MEDS: QUETIAPINE FUMARATE 25 MG TABLET PO SCH (20:37)
[2021-11-08 04:00] VITALS: BP 114/68
[2021-11-08] MEDS: PANTOPRAZOLE SODIUM 40 MG TABLET.DR PO SCH (06:03)
[2021-11-08 08:00] VITALS: BP 152/74
[2021-11-08] MEDS: FLUOXETINE HCL 20 MG CAPSULE PO SCH (08:22)
[2021-11-08] MEDS: CALCIUM CARBONATE 600 MG TABLET PO SCH (08:22)
[2021-11-08] MEDS: CARBIDOPA/LEVODOPA 25-100MG TABLET PO SCH ×4 (08:22→20:24)
[2021-11-08] MEDS: OXYCODONE HCL 5 MG TABLET PO SCH ×2 (08:22→12:06)
[2021-11-08] MEDS: ZINC SULFATE 220 MG CAPSULE PO SCH (08:22)
[2021-11-08] MEDS: ISOSORBIDE MONONITRATE 30 MG TAB.SR.24H PO SCH (08:22)
[2021-11-08] MEDS: LIPASE/PROTEASE/AMYLASE 4200 UNITS CAPSULE.DR PO SCH ×3 (08:22→17:07)
[2021-11-08] MEDS: MONTELUKAST SODIUM 10 MG TABLET PO SCH (08:22)
[2021-11-08] MEDS: FOLIC ACID 1 MG TABLET PO SCH (08:23)
[2021-11-08] MEDS: ENOXAPARIN SODIUM 40 MG/0.4 ML DISP.SYRIN SQ SCH (08:23)
[2021-11-08] MEDS: FLUTICASONE/VILANTEROL 1 EACH BLST.W.DEV IH SCH (08:48)
[2021-11-08] MEDS: REMEDY ESSENTIAL ZINC PASTE 113 GM TOP SCH ×2 (08:48→20:24)
[2021-11-08] MEDS: HYDROCODONE/APAP 10-325 MG TABLET PO PRN (15:24)
[2021-11-08 20:00] VITALS: BP 100/56
[2021-11-08] MEDS: QUETIAPINE FUMARATE 25 MG TABLET PO SCH (20:24)
[2021-11-08] MEDS: DONEPEZIL 10 MG TABLET PO SCH (20:24)
[2021-11-09 04:00] VITALS: BP 133/69
[2021-11-09] MEDS: PANTOPRAZOLE SODIUM 40 MG TABLET.DR PO SCH (06:27)
[2021-11-09 08:03] VITALS: BP 123/68
[2021-11-09] MEDS: LIPASE/PROTEASE/AMYLASE 4200 UNITS CAPSULE.DR PO SCH ×3 (08:12→17:08)
[2021-11-09] MEDS: MONTELUKAST SODIUM 10 MG TABLET PO SCH (08:13)
[2021-11-09] MEDS: OXYCODONE HCL 5 MG TABLET PO SCH ×2 (08:13→12:06)
[2021-11-09] MEDS: ISOSORBIDE MONONITRATE 30 MG TAB.SR.24H PO SCH (08:13)
[2021-11-09] MEDS: FLUOXETINE HCL 20 MG CAPSULE PO SCH (08:13)
[2021-11-09] MEDS: CARBIDOPA/LEVODOPA 25-100MG TABLET PO SCH ×4 (08:13→20:29)
[2021-11-09] MEDS: CALCIUM CARBONATE 600 MG TABLET PO SCH (08:13)
[2021-11-09] MEDS: FOLIC ACID 1 MG TABLET PO SCH (08:13)
[2021-11-09] MEDS: ZINC SULFATE 220 MG CAPSULE PO SCH (08:13)
[2021-11-09] MEDS: FLUTICASONE/VILANTEROL 1 EACH BLST.W.DEV IH SCH (08:14)
[2021-11-09] MEDS: REMEDY ESSENTIAL ZINC PASTE 113 GM TOP SCH ×2 (08:14→20:29)
[2021-11-09] MEDS: ENOXAPARIN SODIUM 40 MG/0.4 ML DISP.SYRIN SQ SCH (08:15)
--- NOTE | 2021-11-09 12:24 | NUR ---
INDIVIDUALIZED PLAN OF CARE
[2021-11-09 16:13] VITALS: BP 96/52
[2021-11-09] MEDS: ENSURE CLEAR 240 ML LIQUID (MIX BERRY) PO SCH (16:33)
[2021-11-09] MEDS: HYDROCODONE/APAP 10-325 MG TABLET PO PRN (16:51)
[2021-11-09 20:01] VITALS: BP 103/56
[2021-11-09] MEDS: DONEPEZIL 10 MG TABLET PO SCH (20:29)
[2021-11-09] MEDS: QUETIAPINE FUMARATE 25 MG TABLET PO SCH (20:29)
[2021-11-10 04:35] VITALS: BP 145/73
[2021-11-10] MEDS: PANTOPRAZOLE SODIUM 40 MG TABLET.DR PO SCH (06:05)
[2021-11-10] MEDS: CALCIUM CARBONATE 600 MG TABLET PO SCH (08:19)
[2021-11-10] MEDS: FOLIC ACID 1 MG TABLET PO SCH (08:19)
[2021-11-10] MEDS: ZINC SULFATE 220 MG CAPSULE PO SCH (08:19)
[2021-11-10] MEDS: FLUOXETINE HCL 20 MG CAPSULE PO SCH (08:20)
[2021-11-10] MEDS: MONTELUKAST SODIUM 10 MG TABLET PO SCH (08:20)
[2021-11-10] MEDS: CARBIDOPA/LEVODOPA 25-100MG TABLET PO SCH ×4 (08:20→20:52)
[2021-11-10] MEDS: ISOSORBIDE MONONITRATE 30 MG TAB.SR.24H PO SCH (08:20)
[2021-11-10] MEDS: OXYCODONE HCL 5 MG TABLET PO SCH ×2 (08:20→12:12)
[2021-11-10] MEDS: LIPASE/PROTEASE/AMYLASE 4200 UNITS CAPSULE.DR PO SCH ×3 (08:22→17:01)
[2021-11-10 08:52] VITALS: BP 119/68
[2021-11-10] MEDS: ENSURE CLEAR 240 ML LIQUID (MIX BERRY) PO SCH ×2 (09:11→16:23)
[2021-11-10] MEDS: REMEDY ESSENTIAL ZINC PASTE 113 GM TOP SCH ×2 (09:12→20:53)
[2021-11-10] MEDS: ENOXAPARIN SODIUM 40 MG/0.4 ML DISP.SYRIN SQ SCH (09:12)
[2021-11-10] MEDS: FLUTICASONE/VILANTEROL 1 EACH BLST.W.DEV IH SCH (09:12)
[2021-11-10 15:42] VITALS: BP 100/60
[2021-11-10] MEDS: HYDROCODONE/APAP 10-325 MG TABLET PO PRN (16:59)
[2021-11-10] MEDS: MAGNESIUM HYDROXIDE 30 ML LIQUID UDC PO PRN (16:59)
[2021-11-10 20:07] VITALS: BP 128/64
[2021-11-10] MEDS: QUETIAPINE FUMARATE 25 MG TABLET PO SCH (20:52)
[2021-11-10] MEDS: DONEPEZIL 10 MG TABLET PO SCH (20:52)
--- NOTE | 2021-11-10 22:15 | NUR ---
Patient so agitated, confused, hallucinating stating that there's a beautiful lady in her room that very jealous of her because she's more beautiful than her and someone came in her room and grabbed and tied her hair etc, etc.
[2021-11-11 05:02] VITALS: BP 129/60
[2021-11-11] MEDS: PANTOPRAZOLE SODIUM 40 MG TABLET.DR PO SCH (06:33)
[2021-11-11] MEDS: OXYCODONE HCL 5 MG TABLET PO SCH ×2 (07:59→12:09)
[2021-11-11] MEDS: MONTELUKAST SODIUM 10 MG TABLET PO SCH (08:00)
[2021-11-11] MEDS: ISOSORBIDE MONONITRATE 30 MG TAB.SR.24H PO SCH (08:00)
[2021-11-11] MEDS: FOLIC ACID 1 MG TABLET PO SCH (08:00)
[2021-11-11] MEDS: FLUOXETINE HCL 20 MG CAPSULE PO SCH (08:00)
[2021-11-11] MEDS: LIPASE/PROTEASE/AMYLASE 4200 UNITS CAPSULE.DR PO SCH ×3 (08:00→17:07)
[2021-11-11] MEDS: ZINC SULFATE 220 MG CAPSULE PO SCH (08:00)
[2021-11-11] MEDS: ENSURE CLEAR 240 ML LIQUID (MIX BERRY) PO SCH ×2 (08:00→16:26)
[2021-11-11] MEDS: CALCIUM CARBONATE 600 MG TABLET PO SCH (08:00)
[2021-11-11] MEDS: ENOXAPARIN SODIUM 40 MG/0.4 ML DISP.SYRIN SQ SCH (08:01)
[2021-11-11] MEDS: MAGNESIUM HYDROXIDE 30 ML LIQUID UDC PO PRN (08:13)
[2021-11-11] MEDS: THIAMINE HCL 100 MG TABLET PO SCH ×2 (08:19→16:26)
[2021-11-11] MEDS: CARBIDOPA/LEVODOPA 25-100MG TABLET PO SCH ×4 (08:19→20:28)
[2021-11-11] MEDS: REMEDY ESSENTIAL ZINC PASTE 113 GM TOP SCH ×2 (08:34→20:30)
[2021-11-11] MEDS: FLUTICASONE/VILANTEROL 1 EACH BLST.W.DEV IH SCH (08:34)
[2021-11-11] MEDS: DONEPEZIL 10 MG TABLET PO SCH (20:29)
[2021-11-11] MEDS: QUETIAPINE FUMARATE 25 MG TABLET PO SCH (20:29)
[2021-11-11 20:36] VITALS: BP 118/55
[2021-11-11] MEDS: HYDROCODONE/APAP 10-325 MG TABLET PO PRN (20:49)
[2021-11-12 04:34] VITALS: BP 136/67
--- NOTE | 2021-11-12 05:28 | NUR ---
Patient is anxious and needs to be reoriented back to time and place. NORCO PO given for L HIP pain relief. Vitals WNL. No signs of acute distress. Safety measures maintained. Call light and belongings placed within reach.
[2021-11-12] MEDS: PANTOPRAZOLE SODIUM 40 MG TABLET.DR PO SCH (06:19)
[2021-11-12 08:00] VITALS: BP 134/80
[2021-11-12] MEDS: FOLIC ACID 1 MG TABLET PO SCH (08:03)
[2021-11-12] MEDS: MONTELUKAST SODIUM 10 MG TABLET PO SCH (08:03)
[2021-11-12] MEDS: FLUOXETINE HCL 20 MG CAPSULE PO SCH (08:03)
[2021-11-12] MEDS: THIAMINE HCL 100 MG TABLET PO SCH ×2 (08:04→16:22)
[2021-11-12] MEDS: ZINC SULFATE 220 MG CAPSULE PO SCH (08:04)
[2021-11-12] MEDS: CARBIDOPA/LEVODOPA 25-100MG TABLET PO SCH ×4 (08:04→20:14)
[2021-11-12] MEDS: CALCIUM CARBONATE 600 MG TABLET PO SCH (08:04)
[2021-11-12] MEDS: LIPASE/PROTEASE/AMYLASE 4200 UNITS CAPSULE.DR PO SCH ×3 (08:04→17:03)
[2021-11-12] MEDS: ISOSORBIDE MONONITRATE 30 MG TAB.SR.24H PO SCH (08:04)
[2021-11-12] MEDS: OXYCODONE HCL 5 MG TABLET PO SCH ×2 (08:04→12:12)
[2021-11-12] MEDS: ENSURE CLEAR 240 ML LIQUID (MIX BERRY) PO SCH ×2 (09:22→16:22)
[2021-11-12] MEDS: ENOXAPARIN SODIUM 40 MG/0.4 ML DISP.SYRIN SQ SCH (09:23)
[2021-11-12] MEDS: FLUTICASONE/VILANTEROL 1 EACH BLST.W.DEV IH SCH (09:24)
[2021-11-12] MEDS: REMEDY ESSENTIAL ZINC PASTE 113 GM TOP SCH ×2 (09:24→20:14)
[2021-11-12 16:43] VITALS: BP 121/74
[2021-11-12] MEDS: QUETIAPINE FUMARATE 25 MG TABLET PO SCH (20:14)
[2021-11-12] MEDS: DONEPEZIL 10 MG TABLET PO SCH (20:14)
[2021-11-12 20:20] VITALS: BP 112/66
--- NOTE | 2021-11-13 02:45 | NUR ---
pt is getting out of bed and confused ,trying to put her back to bed she is hitting the staff and screaming .reorient the pt
[2021-11-13 04:05] VITALS: BP 138/65
[2021-11-13] MEDS: PANTOPRAZOLE SODIUM 40 MG TABLET.DR PO SCH (06:08)
[2021-11-13] MEDS: ACETAMINOPHEN 325 MG TABLET PO PRN (06:31)
[2021-11-13 08:00] VITALS: BP 132/62
[2021-11-13] MEDS: LIPASE/PROTEASE/AMYLASE 4200 UNITS CAPSULE.DR PO SCH ×3 (08:59→17:39)
[2021-11-13] MEDS: OXYCODONE HCL 5 MG TABLET PO SCH ×2 (09:00→12:54)
[2021-11-13] MEDS: THIAMINE HCL 100 MG TABLET PO SCH ×2 (09:00→17:39)
[2021-11-13] MEDS: ZINC SULFATE 220 MG CAPSULE PO SCH (09:00)
[2021-11-13] MEDS: FLUOXETINE HCL 20 MG CAPSULE PO SCH (09:00)
[2021-11-13] MEDS: CALCIUM CARBONATE 600 MG TABLET PO SCH (09:01)
[2021-11-13] MEDS: ERGOCALCIFEROL 50,000 UNIT CAPSULE PO SCH (09:01)
[2021-11-13] MEDS: ISOSORBIDE MONONITRATE 30 MG TAB.SR.24H PO SCH (09:01)
[2021-11-13] MEDS: MONTELUKAST SODIUM 10 MG TABLET PO SCH (09:01)
[2021-11-13] MEDS: ENOXAPARIN SODIUM 40 MG/0.4 ML DISP.SYRIN SQ SCH (09:02)
[2021-11-13] MEDS: FLUTICASONE/VILANTEROL 1 EACH BLST.W.DEV IH SCH (09:03)
[2021-11-13] MEDS: FOLIC ACID 1 MG TABLET PO SCH (09:03)
[2021-11-13] MEDS: REMEDY ESSENTIAL ZINC PASTE 113 GM TOP SCH ×2 (09:03→20:56)
[2021-11-13] MEDS: ENSURE CLEAR 240 ML LIQUID (MIX BERRY) PO SCH ×3 (09:03→17:40)
[2021-11-13] MEDS: CARBIDOPA/LEVODOPA 25-100MG TABLET PO SCH ×4 (09:05→20:54)
[2021-11-13] MEDS ORDERED: QUETIAPINE FUMARATE 25 MG TABLET PO PRN (10:45)
--- NOTE | 2021-11-13 10:45 | NUR ---
Patient is alert, oriented x 3, not in any form of distress, compliant with medications. Dressing change done, surgical incision site with adriana, well coaptated, no redness, no drainage. Daughter Destini at bedside. Notified Dr. Magallanes regarding patient's behavior last night as endorsed by thread singer nurse and daughter's request for psych med adjustment. MD ordered to add Seroquel 12.5mg PO Q 6hrs PRN.
--- NOTE | 2021-11-13 11:35 | NUR ---
Informed Dr. Luna regarding temp of 99.3 with order to do CBC, CMP, UA with C&S.
[2021-11-13 12:51] LABS: BILIRUBIN,TOTAL 1.2 mg/dL (0.2-1.0); CREATININE 0.8 mg/dL (0.6-1.3); POTASSIUM 3.6 mmol/L (3.5-5.1); TOTAL PROTEIN, SERUM 6.1 g/dL (6.4-8.2)
[2021-11-13 13:33] LABS: HEMATOCRIT 25.8 % (31.2-41.9); MEAN CORPUSCULAR HEMOGLOBIN 29.8 uug (24.7-32.8); MEAN CORPUSCULAR VOLUME 85.9 fL (75.5-95.3); PLATELET COUNT (AUTO) 249 K/uL (179-408)
[2021-11-13 13:44] LABS: *BILIRUBIN,URIN NEGATIVE (NEGATIVE); *CLARITY,URINE CLEAR (CLEAR); *COLOR,URINE YELLOW (YELLOW); *KETONES,URINE NEGATIVE (NEGATIVE); *UROBILINOGEN,URINE 0.2 E.U./dl (NORMAL); LEUKOCYTE ESTERASE ,URINE NEGATIVE (NEGATIVE); NITRITE, URINE NEGATIVE (NEGATIVE); PH,URINE 6.5 (5.0-8.0); UGLUCOSE NEGATIVE (NEGATIVE)
[2021-11-13 13:51] LABS: *BLOOD, URINE TRACE (NEGATIVE)
[2021-11-13] MEDS: HYDROCODONE/APAP 10-325 MG TABLET PO PRN ×2 (15:37→21:38)
[2021-11-13 16:02] VITALS: BP 104/57
[2021-11-13 20:18] VITALS: BP 120/52
[2021-11-13] MEDS: DONEPEZIL 10 MG TABLET PO SCH (20:54)
[2021-11-13] MEDS: QUETIAPINE FUMARATE 25 MG TABLET PO SCH (20:54)
[2021-11-14 01:18] LABS: BACTERIA,URINE NONE SEEN /HPF (NONE SEEN); RBC,URINE 0-3 /HPF (0-3); SQUAMOUS EPITHELIAL CELL,UR FEW /HPF (NONE SEEN); WBC,URINE 0-3 /HPF (0-3)
--- NOTE | 2021-11-14 04:48 | NUR ---
Confused and disoriented VSS Needs attended. Kept comfortable. Tolerated po meds well. Incontinent of bowel and bladder. Kept clean and dry. Repositioned. No acute distress noted. Fall precautions maintained. Siderails up for safety.
[2021-11-14 04:55] VITALS: BP 142/65
[2021-11-14] MEDS: PANTOPRAZOLE SODIUM 40 MG TABLET.DR PO SCH (06:17)
[2021-11-14 08:00] VITALS: BP 146/69
[2021-11-14] MEDS: MONTELUKAST SODIUM 10 MG TABLET PO SCH (08:40)
[2021-11-14] MEDS: FOLIC ACID 1 MG TABLET PO SCH (08:40)
[2021-11-14] MEDS: ZINC SULFATE 220 MG CAPSULE PO SCH (08:40)
[2021-11-14] MEDS: FLUOXETINE HCL 20 MG CAPSULE PO SCH (08:40)
[2021-11-14] MEDS: CALCIUM CARBONATE 600 MG TABLET PO SCH (08:40)
[2021-11-14] MEDS: THIAMINE HCL 100 MG TABLET PO SCH ×2 (08:40→17:50)
[2021-11-14] MEDS: CARBIDOPA/LEVODOPA 25-100MG TABLET PO SCH ×4 (08:41→20:56)
[2021-11-14] MEDS: OXYCODONE HCL 5 MG TABLET PO SCH ×2 (08:42→12:35)
[2021-11-14] MEDS: LIPASE/PROTEASE/AMYLASE 4200 UNITS CAPSULE.DR PO SCH ×3 (08:43→17:50)
[2021-11-14] MEDS: ISOSORBIDE MONONITRATE 30 MG TAB.SR.24H PO SCH (08:44)
[2021-11-14] MEDS: FLUTICASONE/VILANTEROL 1 EACH BLST.W.DEV IH SCH (08:44)
[2021-11-14] MEDS: ENOXAPARIN SODIUM 40 MG/0.4 ML DISP.SYRIN SQ SCH (08:46)
[2021-11-14] MEDS: REMEDY ESSENTIAL ZINC PASTE 113 GM TOP SCH ×2 (08:46→20:57)
[2021-11-14] MEDS: ENSURE CLEAR 240 ML LIQUID (MIX BERRY) PO SCH ×3 (08:47→17:51)
--- NOTE | 2021-11-14 10:31 | NUR ---
INTERDISCIPLINARY TEAM CONFERENCE
--- NOTE | 2021-11-14 11:56 | NUR ---
Dr. Luna ordered psych consult. Called Dr. Goodwin and made aware. Spoke to Tiffany from [facility] to notify [facility] as advised by Dr. Goodwin and faxed face sheet to [facility].
[2021-11-14 15:54] VITALS: BP 98/47
[2021-11-14] MEDS: HYDROCODONE/APAP 10-325 MG TABLET PO PRN (18:59)
[2021-11-14 20:00] VITALS: BP 148/69
[2021-11-14] MEDS: QUETIAPINE FUMARATE 25 MG TABLET PO SCH (20:56)
[2021-11-14] MEDS: DONEPEZIL 10 MG TABLET PO SCH (20:56)
[2021-11-15 04:00] VITALS: BP 143/76
[2021-11-15] MEDS: PANTOPRAZOLE SODIUM 40 MG TABLET.DR PO SCH (06:20)
[2021-11-15] MEDS: HYDROCODONE/APAP 10-325 MG TABLET PO PRN (06:47)
[2021-11-15 06:54] LABS: MEAN CORPUSCULAR HEMOGLOBIN 30.3 uug (24.7-32.8); PLATELET COUNT (AUTO) 268 K/uL (179-408)
[2021-11-15 07:04] LABS: CREATININE 0.7 mg/dL (0.6-1.3); POTASSIUM 3.7 mmol/L (3.5-5.1); TOTAL PROTEIN, SERUM 6.1 g/dL (6.4-8.2)
[2021-11-15 07:12] LABS: THYROID STIMULATING HORMONE 1.463 mIU/mL (0.358-3.740)
[2021-11-15 07:51] VITALS: BP 124/52
[2021-11-15] MEDS: LIPASE/PROTEASE/AMYLASE 4200 UNITS CAPSULE.DR PO SCH ×3 (08:27→17:20)
[2021-11-15] MEDS: FOLIC ACID 1 MG TABLET PO SCH (08:28)
[2021-11-15] MEDS: CARBIDOPA/LEVODOPA 25-100MG TABLET PO SCH ×4 (08:29→20:34)
[2021-11-15] MEDS: CALCIUM CARBONATE 600 MG TABLET PO SCH (08:29)
[2021-11-15] MEDS: THIAMINE HCL 100 MG TABLET PO SCH ×2 (08:29→17:20)
[2021-11-15] MEDS: MONTELUKAST SODIUM 10 MG TABLET PO SCH (08:29)
[2021-11-15] MEDS: ISOSORBIDE MONONITRATE 30 MG TAB.SR.24H PO SCH (08:29)
[2021-11-15] MEDS: ZINC SULFATE 220 MG CAPSULE PO SCH (08:29)
[2021-11-15] MEDS: ENSURE CLEAR 240 ML LIQUID (MIX BERRY) PO SCH ×3 (08:34→17:21)
[2021-11-15] MEDS: FLUOXETINE HCL 20 MG CAPSULE PO SCH (08:34)
[2021-11-15] MEDS: FLUTICASONE/VILANTEROL 1 EACH BLST.W.DEV IH SCH (08:35)
[2021-11-15] MEDS: ENOXAPARIN SODIUM 40 MG/0.4 ML DISP.SYRIN SQ SCH (08:41)
[2021-11-15] MEDS: REMEDY ESSENTIAL ZINC PASTE 113 GM TOP SCH ×2 (08:41→20:35)
[2021-11-15] MEDS: OXYCODONE HCL 5 MG TABLET PO SCH ×2 (10:13→13:36)
--- NOTE | 2021-11-15 14:00 | NUR ---
Patient is awake, sitting up on the wheelchair. Compliant with medications. Complained of 5/10 pain on the left hip surgical incision site, given due OxyIR 10mg PO as ordered. Patient went down to rehab gym with PT at this time.
[2021-11-15 15:12] VITALS: BP 103/59
--- NOTE | 2021-11-15 18:26 | NUR ---
Patient in bed awake, alert, on room air, no complain of any pain or discomfort at this time. Assisted with her needs promptly. Call light and frequently used items placed within reach. at bedside.
[2021-11-15 20:00] VITALS: BP 115/64
[2021-11-15] MEDS: QUETIAPINE FUMARATE 25 MG TABLET PO SCH (20:34)
[2021-11-15] MEDS: DONEPEZIL 10 MG TABLET PO SCH (20:34)
[2021-11-16] MEDS: HYDROCODONE/APAP 10-325 MG TABLET PO PRN ×2 (03:17→21:12)
[2021-11-16 04:00] VITALS: BP 124/71
[2021-11-16] MEDS: PANTOPRAZOLE SODIUM 40 MG TABLET.DR PO SCH (06:03)
[2021-11-16 07:54] VITALS: BP 150/67
[2021-11-16] MEDS ORDERED: FLUOXETINE HCL 20 MG CAPSULE PO SCH (09:00)
[2021-11-16] MEDS: CALCIUM CARBONATE 600 MG TABLET PO SCH (09:55)
[2021-11-16] MEDS: FOLIC ACID 1 MG TABLET PO SCH (09:55)
[2021-11-16] MEDS: ISOSORBIDE MONONITRATE 30 MG TAB.SR.24H PO SCH (09:55)
[2021-11-16] MEDS: FLUOXETINE HCL 10 MG CAPSULE PO SCH (09:56)
[2021-11-16] MEDS: CARBIDOPA/LEVODOPA 25-100MG TABLET PO SCH ×4 (09:56→20:03)
[2021-11-16] MEDS: MONTELUKAST SODIUM 10 MG TABLET PO SCH (09:56)
[2021-11-16] MEDS: LIPASE/PROTEASE/AMYLASE 4200 UNITS CAPSULE.DR PO SCH ×3 (09:57→17:33)
[2021-11-16] MEDS: THIAMINE HCL 100 MG TABLET PO SCH ×2 (09:57→17:33)
[2021-11-16] MEDS: ENSURE CLEAR 240 ML LIQUID (MIX BERRY) PO SCH ×3 (09:59→17:28)
[2021-11-16] MEDS: FLUTICASONE/VILANTEROL 1 EACH BLST.W.DEV IH SCH (09:59)
[2021-11-16] MEDS: ZINC SULFATE 220 MG CAPSULE PO SCH (10:00)
[2021-11-16] MEDS: REMEDY ESSENTIAL ZINC PASTE 113 GM TOP SCH ×2 (10:00→20:03)
[2021-11-16] MEDS: OXYCODONE HCL 5 MG TABLET PO SCH ×2 (10:03→14:06)
[2021-11-16] MEDS: ENOXAPARIN SODIUM 40 MG/0.4 ML DISP.SYRIN SQ SCH (10:04)
[2021-11-16 15:57] VITALS: BP 139/71
[2021-11-16 20:00] VITALS: BP 152/70
[2021-11-16] MEDS: DONEPEZIL 10 MG TABLET PO SCH (20:03)
[2021-11-16] MEDS: QUETIAPINE FUMARATE 25 MG TABLET PO SCH (20:03)
--- NOTE | 2021-11-16 20:40 | NUR ---
PATIENT ALERT BUT FORGETFUL, WANTED TO USE THE TOILET, TIRE SPOTTER ASSISTED PATIENT TO GO TO THE TOILET BUT PATIENT REFUSED TO PUT WEIGHT ON HER RIGHT FOOT, UNABLE TO PERFORM THE ACT OF AMBULATION GOING TO THE TOILET, TIRE SPOTTER ASSISTED PATIENT BACK TO BED GENTLY. PATIENT BECAME UPSET, BUT EXPLAINED TO PATIENT THAT SHE WILL BE MEDICATED FOR PAIN BEFORE AMBULATION, BUT TOO UPSET TO TAKE ANY MEDS, CONT TO REORIENT PATIENT, CONT TO MONITOR.
[2021-11-17 04:01] VITALS: BP 138/63
--- NOTE | 2021-11-17 04:45 | NUR ---
PATIENT AWAKE, HAS PAIN ON LEFT HIP WHEN MOVING OR DOING ADL'S. PATIENT CALM AND COOPERATIVE WITH THE CARE AT THIS TIME, TURN AND REPOSITION, KEPT CLEAN DRY AND COMFORTABLE. CONT TO MONITOR.
[2021-11-17] MEDS: PANTOPRAZOLE SODIUM 40 MG TABLET.DR PO SCH (06:02)
[2021-11-17 06:38] LABS: MEAN CORPUSCULAR HEMOGLOBIN 29.5 uug (24.7-32.8); MEAN CORPUSCULAR VOLUME 84.6 fL (75.5-95.3); PLATELET COUNT (AUTO) 359 K/uL (179-408)
[2021-11-17 06:55] LABS: IRON, SERUM 38 ug/dL (50-175)
[2021-11-17 08:00] VITALS: BP 174/53
--- NOTE | 2021-11-17 08:00 | NUR ---
Received patient laying in bed. A/O x 2-3 with episodes of forgetfulness. In O2 2L NC. Denies SOB but reports Pain in the left hip. penitentiary assessment done, left hip adriana and incision noted. Appears to be clean/dry and intact. Reinforced dressing as pts keeps taking it out. Denies numbness and tingling on the left leg. Right wrist IV patent and intact. Safety initiated. Call light within reach. Will closely monitor.
[2021-11-17] MEDS: THIAMINE HCL 100 MG TABLET PO SCH ×2 (08:23→17:47)
[2021-11-17] MEDS: ZINC SULFATE 220 MG CAPSULE PO SCH (08:23)
[2021-11-17] MEDS: FOLIC ACID 1 MG TABLET PO SCH (08:25)
[2021-11-17] MEDS: FLUOXETINE HCL 10 MG CAPSULE PO SCH (08:25)
[2021-11-17] MEDS: CARBIDOPA/LEVODOPA 25-100MG TABLET PO SCH ×4 (08:25→20:10)
[2021-11-17] MEDS: LIPASE/PROTEASE/AMYLASE 4200 UNITS CAPSULE.DR PO SCH ×3 (08:25→17:47)
[2021-11-17] MEDS: CALCIUM CARBONATE 600 MG TABLET PO SCH (08:25)
[2021-11-17] MEDS: OXYCODONE HCL 5 MG TABLET PO SCH ×2 (08:25→13:14)
[2021-11-17] MEDS: ISOSORBIDE MONONITRATE 30 MG TAB.SR.24H PO SCH (08:26)
[2021-11-17] MEDS: FLUTICASONE/VILANTEROL 1 EACH BLST.W.DEV IH SCH (08:27)
[2021-11-17] MEDS: ENOXAPARIN SODIUM 40 MG/0.4 ML DISP.SYRIN SQ SCH (08:27)
[2021-11-17] MEDS: ENSURE CLEAR 240 ML LIQUID (MIX BERRY) PO SCH ×3 (08:28→17:48)
[2021-11-17] MEDS: MONTELUKAST SODIUM 10 MG TABLET PO SCH (08:28)
[2021-11-17] MEDS: REMEDY ESSENTIAL ZINC PASTE 113 GM TOP SCH ×2 (08:28→20:10)
--- NOTE | 2021-11-17 08:30 | NUR ---
PT at bedside. Pt. is able to get on the bedside commode but unable to ambulate due to the pain. Will continue to monitor.
--- NOTE | 2021-11-17 12:17 | NUR ---
PT removed IV from right FA. MD traore.
[2021-11-17] MEDS: DOCUSATE SODIUM 100 MG CAPSULE PO PRN (13:14)
[2021-11-17 16:12] VITALS: BP 108/52
--- NOTE | 2021-11-17 17:37 | NUR ---
Pt. afebrile t/o shift. Pt takes out NC but O2 sat is 96% in room air. Med compliant. Remains A/O x 2-3 but needs frequent re directions. Incision care provided. Denies SOB but reports pain in the left hip. Scheduled pain medication given with stated relief. Good urine output. No new skin issues noted. Participated with PT. Vital signs stable. All meds given as ordered. All needs met.
[2021-11-17 20:00] VITALS: BP 100/52
--- NOTE | 2021-11-17 20:00 | NUR ---
RECEIVED PATIENT AWAKE IN ROOM, WITH AT BEDSIDE. NO C/O PAIN AT THIS TIME. NO RESP. DISTRESS NOTED. VS WNL. DRESSING NOTED TO LEFT HIP, C/D/I. BED ALARM ON. CALL LIGHT IN REACH. ALL NEEDS ATTENDED. WILL CONTINUE TO MONITOR AND ASSESS.
[2021-11-17] MEDS: QUETIAPINE FUMARATE 25 MG TABLET PO SCH (20:10)
[2021-11-17] MEDS: DONEPEZIL 10 MG TABLET PO SCH (20:10)
--- NOTE | 2021-11-17 23:41 | NUR ---
assumed care from Nurse Wheeler; pt resting on bed; not in distress; safety measures continued.
[2021-11-18 04:30] VITALS: BP 107/53
[2021-11-18] MEDS: PANTOPRAZOLE SODIUM 40 MG TABLET.DR PO SCH (05:57)
[2021-11-18 08:25] VITALS: BP 117/55
[2021-11-18] MEDS: CALCIUM CARBONATE 600 MG TABLET PO SCH (08:44)
[2021-11-18] MEDS: ISOSORBIDE MONONITRATE 30 MG TAB.SR.24H PO SCH (08:45)
[2021-11-18] MEDS: CARBIDOPA/LEVODOPA 25-100MG TABLET PO SCH ×4 (08:45→20:12)
[2021-11-18] MEDS: OXYCODONE HCL 5 MG TABLET PO SCH ×2 (08:45→11:59)
[2021-11-18] MEDS: FLUOXETINE HCL 10 MG CAPSULE PO SCH (08:45)
[2021-11-18] MEDS: LIPASE/PROTEASE/AMYLASE 4200 UNITS CAPSULE.DR PO SCH ×3 (08:46→17:37)
[2021-11-18] MEDS: FOLIC ACID 1 MG TABLET PO SCH (08:46)
[2021-11-18] MEDS: THIAMINE HCL 100 MG TABLET PO SCH ×2 (08:46→17:37)
[2021-11-18] MEDS: ZINC SULFATE 220 MG CAPSULE PO SCH (08:46)
[2021-11-18] MEDS: MONTELUKAST SODIUM 10 MG TABLET PO SCH (08:46)
[2021-11-18] MEDS: ENOXAPARIN SODIUM 40 MG/0.4 ML DISP.SYRIN SQ SCH (08:47)
[2021-11-18] MEDS: ENSURE CLEAR 240 ML LIQUID (MIX BERRY) PO SCH ×3 (08:48→17:38)
[2021-11-18] MEDS: REMEDY ESSENTIAL ZINC PASTE 113 GM TOP SCH ×2 (08:48→20:13)
[2021-11-18] MEDS: FLUTICASONE/VILANTEROL 1 EACH BLST.W.DEV IH SCH (08:48)
[2021-11-18 15:52] VITALS: BP 129/50
--- NOTE | 2021-11-18 19:47 | NUR ---
Received patient in bed with at bedside. Awake, alert,oriented with episodes of forgetfulness. Reoriented patient accordingly. Dressing at L hip, clean and intact, no bleeding noted. Patient denies pain, SOB or dizziness. Safety precautions initiated. Call light within reach. Will continue to monitor.
[2021-11-18] MEDS: QUETIAPINE FUMARATE 25 MG TABLET PO SCH (20:12)
[2021-11-18] MEDS: DONEPEZIL 10 MG TABLET PO SCH (20:13)
[2021-11-18 20:16] VITALS: BP 114/60
[2021-11-18] MEDS: MAGNESIUM HYDROXIDE 30 ML LIQUID UDC PO PRN (20:17)
[2021-11-19 04:16] VITALS: BP 128/57
[2021-11-19] MEDS: PANTOPRAZOLE SODIUM 40 MG TABLET.DR PO SCH (06:03)
--- NOTE | 2021-11-19 06:25 | NUR ---
Patient slept through the night. awake, alert, and oriented. No acute distress noted at this time. Compliant with patient medication regimen. Surgical dressing at left hip, intact, no bleeding noted or paresthesia noted. All needs attended to and met. Safety precautions maintained. will endorse to day shift.
--- NOTE | 2021-11-19 07:20 | NUR ---
RECEIVED PATIENT IN BED AWAKE ALERT BUT IS DISORIENTED AT THIS TIME WANTS TO GET OUT OF BED BUT IS NOT SURE OF DESTINATION REORIENTED ON ROOM AIR WITH NO SHORTNESS OF BREATH LEFT HIP WITH DRESSINGS INTACT DENIES PAIN OR DISCOMFORTS AT THIS TIME.CALL LIGHTS AND PERSONAL BELONGINGS ARE WITHIN EASY REACH MADE COMFORTABLE WILL CONTINUE TO OBSERVE.
[2021-11-19] MEDS: MONTELUKAST SODIUM 10 MG TABLET PO SCH (08:10)
[2021-11-19] MEDS: CALCIUM CARBONATE 600 MG TABLET PO SCH (08:11)
[2021-11-19] MEDS: ZINC SULFATE 220 MG CAPSULE PO SCH (08:11)
[2021-11-19] MEDS: FOLIC ACID 1 MG TABLET PO SCH (08:11)
[2021-11-19] MEDS: THIAMINE HCL 100 MG TABLET PO SCH ×2 (08:11→16:41)
[2021-11-19] MEDS: DOCUSATE SODIUM 100 MG CAPSULE PO PRN (08:11)
[2021-11-19] MEDS: LIPASE/PROTEASE/AMYLASE 4200 UNITS CAPSULE.DR PO SCH ×3 (08:12→18:14)
[2021-11-19] MEDS: OXYCODONE HCL 5 MG TABLET PO SCH ×2 (08:12→12:36)
[2021-11-19] MEDS: ENOXAPARIN SODIUM 40 MG/0.4 ML DISP.SYRIN SQ SCH (08:13)
[2021-11-19] MEDS: ISOSORBIDE MONONITRATE 30 MG TAB.SR.24H PO SCH (08:14)
[2021-11-19] MEDS: CARBIDOPA/LEVODOPA 25-100MG TABLET PO SCH ×4 (08:17→21:21)
[2021-11-19] MEDS: FLUOXETINE HCL 10 MG CAPSULE PO SCH (08:17)
[2021-11-19] MEDS: REMEDY ESSENTIAL ZINC PASTE 113 GM TOP SCH ×2 (08:18→21:21)
[2021-11-19] MEDS: ENSURE CLEAR 240 ML LIQUID (MIX BERRY) PO SCH ×3 (08:18→17:10)
[2021-11-19] MEDS: FLUTICASONE/VILANTEROL 1 EACH BLST.W.DEV IH SCH (08:25)
[2021-11-19 08:36] VITALS: BP 138/66
--- NOTE | 2021-11-19 12:00 | NUR ---
PHYSICAL THERAPIST HERE AND PATIENT AMBULATED WITH THE FRONT WHEEL WALKER WITH ONE PERSON ASSIST WITH SLOW STEADY GAIT ENDURANCE IS FAIR SEATED ON THE CHAIR ATE LUNCH AND BACK TO BED.
[2021-11-19 16:00] VITALS: BP 102/51
[2021-11-19] MEDS: HYDROCODONE/APAP 10-325 MG TABLET PO PRN (16:42)
--- NOTE | 2021-11-19 16:42 | NUR ---
C/O PAIN IN HER LEFT HIP MEDICATED WITH NORCO ORDERED PATIENT MADE COMFORTABLE WILL CONTINUE TO OBSERVE.
[2021-11-19 20:00] VITALS: BP 102/60
[2021-11-19] MEDS: QUETIAPINE FUMARATE 25 MG TABLET PO SCH (21:21)
[2021-11-19] MEDS: DONEPEZIL 10 MG TABLET PO SCH (21:21)
[2021-11-20] MEDS: HYDROCODONE/APAP 10-325 MG TABLET PO PRN ×2 (01:20→16:33)
--- NOTE | 2021-11-20 01:20 | NUR ---
Left hip pain in scale of 5/10, [place] 1 tab given as needed and ordered. Will monitor.
[2021-11-20 04:00] VITALS: BP 107/60
[2021-11-20] MEDS: PANTOPRAZOLE SODIUM 40 MG TABLET.DR PO SCH (06:21)
[2021-11-20 07:30] VITALS: BP 133/75
--- NOTE | 2021-11-20 07:34 | NUR ---
RECEIVED PATIENT IN BED AWAKE ALERT AND ABLE TO MAKE NEEDS KNOWN DENIES PAIN OR DISCOMFORTS AT THIS TIME ON ROOM AIR WITH NO SHORTNESS OF BREATH NOTED.LEFT HIP WITH DRESSING INTACT AND NO DRAINAGE CALL LIGHTS AND PERSONAL BELONGINGS ARE WITHIN EASY REACH WILL CONTINUE TO OBSERVE.
[2021-11-20] MEDS: LIPASE/PROTEASE/AMYLASE 4200 UNITS CAPSULE.DR PO SCH ×3 (08:31→17:19)
[2021-11-20] MEDS: FLUTICASONE/VILANTEROL 1 EACH BLST.W.DEV IH SCH (08:31)
[2021-11-20] MEDS: CALCIUM CARBONATE 600 MG TABLET PO SCH (08:32)
[2021-11-20] MEDS: ZINC SULFATE 220 MG CAPSULE PO SCH (08:32)
[2021-11-20] MEDS: CARBIDOPA/LEVODOPA 25-100MG TABLET PO SCH ×4 (08:32→20:57)
[2021-11-20] MEDS: THIAMINE HCL 100 MG TABLET PO SCH ×2 (08:32→16:33)
[2021-11-20] MEDS: FLUOXETINE HCL 10 MG CAPSULE PO SCH (08:32)
[2021-11-20] MEDS: MONTELUKAST SODIUM 10 MG TABLET PO SCH (08:32)
[2021-11-20] MEDS: ISOSORBIDE MONONITRATE 30 MG TAB.SR.24H PO SCH (08:33)
[2021-11-20] MEDS: OXYCODONE HCL 5 MG TABLET PO SCH ×2 (08:33→12:12)
[2021-11-20] MEDS: ENOXAPARIN SODIUM 40 MG/0.4 ML DISP.SYRIN SQ SCH (08:37)
[2021-11-20] MEDS: REMEDY ESSENTIAL ZINC PASTE 113 GM TOP SCH ×2 (08:44→20:57)
--- NOTE | 2021-11-20 09:02 | NUR ---
PATIENT SEEN AND EXAMINED BY DR CARCAMO WITH NEW ORDERS AND NOTED
[2021-11-20] MEDS: ERGOCALCIFEROL 50,000 UNIT CAPSULE PO SCH (09:16)
[2021-11-20] MEDS: FOLIC ACID 1 MG TABLET PO SCH (09:16)
[2021-11-20] MEDS: ENSURE CLEAR 240 ML LIQUID (MIX BERRY) PO SCH ×3 (09:18→17:19)
[2021-11-20 15:54] VITALS: BP 101/57
--- NOTE | 2021-11-20 16:33 | NUR ---
PATIENT C/O INCISIONAL PAIN IN HER LEFT HIP MEDICATED WITH NORCO ORDERED MADE COMFORTABLE IS AT HER BEDSIDE WILL CONTINUE TO OBSERVE.
[2021-11-20 20:00] VITALS: BP 120/65
[2021-11-20] MEDS: QUETIAPINE FUMARATE 25 MG TABLET PO SCH (20:57)
[2021-11-20] MEDS: DONEPEZIL 10 MG TABLET PO SCH (20:57)
[2021-11-21 04:00] VITALS: BP 105/66
[2021-11-21] MEDS: PANTOPRAZOLE SODIUM 40 MG TABLET.DR PO SCH (05:54)
[2021-11-21 06:58] LABS: HEMATOCRIT 25.9 % (31.2-41.9); MEAN CORPUSCULAR HEMOGLOBIN 29.6 uug (24.7-32.8); PLATELET COUNT (AUTO) 324 K/uL (179-408)
[2021-11-21 07:19] LABS: CREATININE 0.8 mg/dL (0.6-1.3); POTASSIUM 4.1 mmol/L (3.5-5.1)
[2021-11-21 07:30] VITALS: BP 124/63
[2021-11-21] MEDS: OXYCODONE HCL 5 MG TABLET PO SCH ×2 (08:28→12:53)
[2021-11-21] MEDS: LIPASE/PROTEASE/AMYLASE 4200 UNITS CAPSULE.DR PO SCH ×3 (08:29→17:00)
[2021-11-21] MEDS: FLUTICASONE/VILANTEROL 1 EACH BLST.W.DEV IH SCH (08:30)
[2021-11-21] MEDS: FOLIC ACID 1 MG TABLET PO SCH (08:31)
[2021-11-21] MEDS: ENSURE CLEAR 240 ML LIQUID (MIX BERRY) PO SCH ×3 (08:31→16:58)
[2021-11-21] MEDS: CALCIUM CARBONATE 600 MG TABLET PO SCH (08:31)
[2021-11-21] MEDS: MEGESTROL ACETATE 20 MG TABLET PO SCH ×2 (08:32→16:59)
[2021-11-21] MEDS: ISOSORBIDE MONONITRATE 30 MG TAB.SR.24H PO SCH (08:32)
[2021-11-21] MEDS: REMEDY ESSENTIAL ZINC PASTE 113 GM TOP SCH ×2 (08:33→21:00)
[2021-11-21] MEDS: MONTELUKAST SODIUM 10 MG TABLET PO SCH (08:33)
[2021-11-21] MEDS: THIAMINE HCL 100 MG TABLET PO SCH ×2 (08:33→17:00)
[2021-11-21] MEDS: FLUOXETINE HCL 10 MG CAPSULE PO SCH (08:33)
[2021-11-21] MEDS: CARBIDOPA/LEVODOPA 25-100MG TABLET PO SCH ×4 (08:33→20:59)
[2021-11-21] MEDS: ZINC SULFATE 220 MG CAPSULE PO SCH (08:35)
--- NOTE | 2021-11-21 11:08 | NUR ---
INTERDISCIPLINARY TEAM CONFERENCE
[2021-11-21 15:41] VITALS: BP 102/61
--- NOTE | 2021-11-21 17:21 | NUR ---
Patient remain in bed with at bedside at this time. Up in W/C with PT for therapeutic exercises. Awake, alert,oriented with episodes of forgetfulness. Reoriented patient accordingly. L hip,surgical incision clean and intact with adriana in place, no bleeding noted. Patient medicated for pain as ordered, no c/o of SOB or dizziness remain at room air. Safety precautions in place. Call light within reach. Will continue to monitor for comfort and safety.
[2021-11-21] MEDS: ACETAMINOPHEN 325 MG TABLET PO PRN (17:30)
[2021-11-21] MEDS: HYDROCODONE/APAP 10-325 MG TABLET PO PRN (18:28)
[2021-11-21 20:00] VITALS: BP 112/61
[2021-11-21] MEDS: DONEPEZIL 10 MG TABLET PO SCH (20:59)
[2021-11-21] MEDS: QUETIAPINE FUMARATE 25 MG TABLET PO SCH (20:59)
[2021-11-22 04:00] VITALS: BP 121/67
[2021-11-22] MEDS: PANTOPRAZOLE SODIUM 40 MG TABLET.DR PO SCH (06:03)
--- NOTE | 2021-11-22 06:25 | NUR ---
PATIENT SLEPT WELL THROUGHOUT THE NIGHT. NO C/O PAIN AT THIS TIME. CALL LIGHT IN REACH. ALL NEEDS ATTENDED. WILL CONTINUE TO MONITOR AND ASSESS.
[2021-11-22 07:20] VITALS: BP 127/70
[2021-11-22] MEDS: MEGESTROL ACETATE 20 MG TABLET PO SCH ×2 (08:20→16:19)
[2021-11-22] MEDS: ZINC SULFATE 220 MG CAPSULE PO SCH (08:20)
[2021-11-22] MEDS: MONTELUKAST SODIUM 10 MG TABLET PO SCH (08:20)
[2021-11-22] MEDS: LIPASE/PROTEASE/AMYLASE 4200 UNITS CAPSULE.DR PO SCH ×3 (08:20→17:15)
[2021-11-22] MEDS: CARBIDOPA/LEVODOPA 25-100MG TABLET PO SCH ×4 (08:20→20:02)
[2021-11-22] MEDS: FLUOXETINE HCL 10 MG CAPSULE PO SCH (08:20)
[2021-11-22] MEDS: FOLIC ACID 1 MG TABLET PO SCH (08:20)
[2021-11-22] MEDS: THIAMINE HCL 100 MG TABLET PO SCH ×2 (08:20→16:19)
[2021-11-22] MEDS: CALCIUM CARBONATE 600 MG TABLET PO SCH (08:20)
[2021-11-22] MEDS: ISOSORBIDE MONONITRATE 30 MG TAB.SR.24H PO SCH (08:20)
[2021-11-22] MEDS: OXYCODONE HCL 5 MG TABLET PO SCH ×2 (08:21→12:06)
[2021-11-22] MEDS: DOCUSATE SODIUM 100 MG CAPSULE PO PRN (08:21)
[2021-11-22] MEDS: ENSURE CLEAR 240 ML LIQUID (MIX BERRY) PO SCH ×3 (08:21→16:19)
[2021-11-22] MEDS: REMEDY ESSENTIAL ZINC PASTE 113 GM TOP SCH ×2 (08:29→20:39)
[2021-11-22] MEDS: FLUTICASONE/VILANTEROL 1 EACH BLST.W.DEV IH SCH (08:30)
[2021-11-22 15:12] VITALS: BP 107/55
[2021-11-22] MEDS ORDERED: LIDOCAINE HCL 1% 20 ML VIAL IJ ONE (17:30)
[2021-11-22] MEDS ORDERED: TRIAMCINOLONE ACETONIDE 40 MG/1 ML VIAL IM ONE (17:30)
[2021-11-22] MEDS ORDERED: methylPREDNISolone ACETATE 40 MG VIAL IM ONE (17:45)
[2021-11-22] MEDS: DONEPEZIL 10 MG TABLET PO SCH (20:02)
[2021-11-22] MEDS: QUETIAPINE FUMARATE 25 MG TABLET PO SCH (20:02)
[2021-11-22 20:29] VITALS: BP 113/65
[2021-11-23 04:23] VITALS: BP 138/60
[2021-11-23] MEDS: PANTOPRAZOLE SODIUM 40 MG TABLET.DR PO SCH (06:04)
--- NOTE | 2021-11-23 06:15 | NUR ---
Pt slept well throughout the night, easily arousable for care, denies pain and discomfort. No significant changes noted. All needs attended. Call light placed within reach. Will endorse to next shift.
[2021-11-23 07:37] VITALS: BP 129/70
[2021-11-23] MEDS: LIPASE/PROTEASE/AMYLASE 4200 UNITS CAPSULE.DR PO SCH ×2 (08:14→12:21)
[2021-11-23] MEDS: OXYCODONE HCL 5 MG TABLET PO SCH ×2 (08:14→12:21)
[2021-11-23] MEDS: FLUTICASONE/VILANTEROL 1 EACH BLST.W.DEV IH SCH (08:15)
[2021-11-23] MEDS: FOLIC ACID 1 MG TABLET PO SCH (08:15)
[2021-11-23] MEDS: ENSURE CLEAR 240 ML LIQUID (MIX BERRY) PO SCH ×2 (08:15→12:27)
[2021-11-23] MEDS: CALCIUM CARBONATE 600 MG TABLET PO SCH (08:15)
[2021-11-23 08:16] VITALS: BP 129/70
[2021-11-23] MEDS: ISOSORBIDE MONONITRATE 30 MG TAB.SR.24H PO SCH (08:16)
[2021-11-23] MEDS: THIAMINE HCL 100 MG TABLET PO SCH (08:16)
[2021-11-23] MEDS: MONTELUKAST SODIUM 10 MG TABLET PO SCH (08:16)
[2021-11-23] MEDS: FLUOXETINE HCL 10 MG CAPSULE PO SCH (08:16)
[2021-11-23] MEDS: MEGESTROL ACETATE 20 MG TABLET PO SCH (08:16)
[2021-11-23] MEDS: ZINC SULFATE 220 MG CAPSULE PO SCH (08:17)
[2021-11-23] MEDS: CARBIDOPA/LEVODOPA 25-100MG TABLET PO SCH ×2 (08:17→12:21)
[2021-11-23] MEDS: REMEDY ESSENTIAL ZINC PASTE 113 GM TOP SCH (08:25)
--- NOTE | 2021-11-23 12:50 | NUR ---
Pt was discharged to [facility].Verbal discharge instructions and personal belongings given to Pt.ID band was removed. Report given to Delmy RN at the facility Pt was medicated for pain as ordered prior to D/C.pt left in stable condition transported via [facility] ambulance all written instruction given to seat nailer personnel.
== END 2021-11-23 12:55 | DRG 559 ==
PROVIDERS: ADMIT Physical Medicine & Rehabilitation Pain Medicine; ATTEND Physical Medicine & Rehabilitation Pain Medicine
DX: S72.142D Displaced intertrochanteric fracture of left femur, subsequent encounter for closed fracture with routine healing (principal); E43 Unspecified severe protein-calorie malnutrition; D68.59 Other primary thrombophilia; G93.40 Encephalopathy, unspecified; K86.1 Other chronic pancreatitis; S72.092D Other fracture of head and neck of left femur, subsequent encounter for closed fracture with routine healing; E88.09 Other disorders of plasma-protein metabolism, not elsewhere classified; F02.80 Dementia in other diseases classified elsewhere, unspecified severity, without behavioral disturbance, psychotic disturbance, mood disturbance, and anxiety; G20 Parkinson's disease; W01.0XXD Fall on same level from slipping, tripping and stumbling without subsequent striking against object, subsequent encounter; D50.9 Iron deficiency anemia, unspecified; F32.9 Major depressive disorder, single episode, unspecified; G30.9 Alzheimer's disease, unspecified; R53.1 Weakness; J44.9 Chronic obstructive pulmonary disease, unspecified; K21.9 Gastro-esophageal reflux disease without esophagitis; R26.9 Unspecified abnormalities of gait and mobility; Z88.6 Allergy status to analgesic agent; Z88.8 Allergy status to other drugs, medicaments and biological substances; J98.4 Other disorders of lung
CPT/HCPCS: 36415; 73502; 83550; 83735; 84100; 84443; 85025; 87086; 97161; 97535-GO-CO; A6209; J1650; J3301; J3490